=== PATIENT | female | born 1955 | race Caucasian/White ===

== ENCOUNTER 2023-01-06 14:38 | Emergency (ER) | payer MEDICARE, SELFPAY ==
[2023-01-06 15:07] VITALS: BP 178/75; PULSE 80; RESP 16; TEMP 36.6; O2SAT 98; BMI 25.7
--- NOTE | 2023-01-06 15:09 | ED_ITS ---
HPI - General Adult General Chief complaint: Extremity Injury, Upper <SAMMY Arevalo - Last Filed: 01/08/23 11:11> Stated complaint: Sliced R ring finger <SAMMY Arevalo - Last Filed: 01/08/23 11:11> Time Seen by Provider: 01/06/23 15:19 <SAMMY Arevalo - Last Filed: 01/08/23 11:11> Source: patient and family <Dorcas Silverman NP - Last Filed: 01/06/23 17:04> Mode of arrival: ambulatory <Dorcas Silverman NP - Last Filed: 01/06/23 17:04> Limitations: no limitations <ESPINOZA Guillaume Last Filed: 01/06/23 17:04> History of Present Illness HPI narrative: 67-year-old female with history of hypertension hypothyroidism presents the ER with complaints of laceration to the right 4th digit. Patient reports she was doing dishes and a ceramic glass cut her finger. Patient unaware tetanus status. Patient denies any associated weakness, numbness or tingling of the extremity. <Dorcas Silverman NP - Last Filed: 01/06/23 17:04> Related Data Allergies/adverse reactions: Allergies Allergy/AdvReac Type Severity Reaction Status Date / Time bee pollen [bee stings] Allergy Swelling Verified 01/06/23 15:06 <SAMMY Arevalo - Last Filed: 01/08/23 11:11> Review of Systems Review of Systems: Yes all other systems are reviewed and are negative <Dorcas Silverman NP - Last Filed: 01/06/23 17:04> Constitutional: Constitutional: Reports no additional constitutional complaints, Denies body ache(s), Denies chills, Denies fever(s), Denies headache(s) and Denies weakness <Dorcas Silverman NP - Last Filed: 01/06/23 17:04> Eyes: Eyes: Reports no additional eye complaints and Denies change in vision <Dorcas Silverman NP - Last Filed: 01/06/23 17:04> ENT: Reports system reviewed and no additional complaints, except as documented, Denies dizziness, Denies headache(s), Denies nasal congestion, Denies nasal discharge and Denies neck pain <Dorcas Silverman PHYSICIAN PRACTICE CONSULTANT - Last Filed: 01/06/23 17:04> Cardiovascular: Cardiovascular: Reports no additional cardiovascular complaints, Denies chest pain, Denies leg edema and Denies dyspnea <Dorcas Silverman PHYSICIAN PRACTICE CONSULTANT - Last Filed: 01/06/23 17:04> Respiratory: Respiratory: Reports no additional respiratory complaints, Denies cough and Denies dyspnea <Dorcas Silvermna PHYSICIAN PRACTICE CONSULTANT - Last Filed: 01/06/23 17:04> Gastrointestinal: Gastrointestinal: Reports no additional gastrointestinal complaints, Denies abdominal pain, Denies diarrhea, Denies nausea and Denies vomiting <Dorcas Silverman PHYSICIAN PRACTICE CONSULTANT - Last Filed: 01/06/23 17:04> Genitourinary: Genitourinary: Reports no additional female genitourinary complaints and Denies urinary incontinence <Dorcas Silverman PHYSICIAN PRACTICE CONSULTANT - Last Filed: 01/06/23 17:04> Musculoskeletal: Musculoskeletal: Reports no additional musculoskeletal complaints, Denies back pain, Denies arthralgias, Denies joint swelling, Denies neck pain, Denies numbness and Denies tingling <Dorcas Silverman PHYSICIAN PRACTICE CONSULTANT - Last Filed: 01/06/23 17:04> Integumentary/Breasts: Skin/Breast: Reports system reviewed and no additional complaints, except as docu, Denies rash and Reports wounds <Dorcas Silverman PHYSICIAN PRACTICE CONSULTANT - Last Filed: 01/06/23 17:04> Neurologic: Reports system reviewed and no additional complaints, except as documented, Denies dizziness, Denies headache(s), Denies numbness, Denies tingling and Denies weakness <Dorcas Silverman PHYSICIAN PRACTICE CONSULTANT - Last Filed: 01/06/23 17:04> [facility] Past Medical History Attestation statement: The following information was validated with the patient. <Dorcas Silverman NP - Last Filed: 01/06/23 17:04> Source: old records reviewed and nursing notes reviewed <Dorcas Silverman NP - Last Filed: 01/06/23 17:04> Social History Social History: Social History Advance Directives: No Advance Directives Information Provided: No <Zurdo Sal, PA - Last Filed: 01/08/23 11:11> Physical Exam ED Vital Signs: Vital Signs - 24 hr 01/06/23 15:07 Temperature 97.9 F Pulse Rate 80 Respiratory Rate 16 Blood Pressure 178/75 H Pulse Oximetry 98 Oxygen Delivery Method Room Air BMI result Body Mass Index 25.7 <SAMMY Arevalo - Last Filed: 01/08/23 11:11> Vital Signs - 24 hr 01/06/23 15:07 Temperature 97.9 F Pulse Rate 80 Respiratory Rate 16 Blood Pressure 178/75 H Pulse Oximetry 98 Oxygen Delivery Method Room Air BMI result Body Mass Index 25.7 <Dorcas Silverman NP - Last Filed: 01/06/23 17:04> Const General: cooperative, healthy appearing and comfortable <Dorcas Silverman NP - Last Filed: 01/06/23 17:04> Orientation/consciousness: patient oriented x3 <Dorcas Silverman NP - Last Filed: 01/06/23 17:04> HENMT Head: Yes normal to inspection <Dorcas Silverman NP - Last Filed: 01/06/23 17:04> Ears: hearing grossly normal bilaterally <Dorcas Silverman NP - Last Filed: 01/06/23 17:04> Eyes General: appearance normal, both eyes and all related structures <Dorcas Silverman NP - Last Filed: 01/06/23 17:04> Neck Neck: Yes normal visual inspection <Dorcas Silverman NP - Last Filed: 01/06/23 17:04> Chest Chest palpation & inspection: normal inspection of the chest <Dorcas Silverman NP - Last Filed: 01/06/23 17:04> Resp Effort & Inspection: normal respiratory effort <Dorcas Silverman NP - Last Filed: 01/06/23 17:04> Cardio Peripheral pulses: Peripheral pulses 2+ throughout <Dorcas Silverman NP - Last Filed: 01/06/23 17:04> Skin General skin exam: no rashes or lesions noted <Dorcas Silverman NP - Last Filed: 01/06/23 17:04> Neuro General: patient oriented x3 and moves all extremities <Dorcas Silverman NP - Last Filed: 01/06/23 17:04> Extrem Other: Over the volar aspect of the right hand of the 4th digit there is a 4 cm laceration. Patient is able to flex and extend the digit with no difficulty. Sensation is intact distally. <Dorcas Silverman NP - Last Filed: 01/06/23 17:04> Course Course Course Narrative: RME: 67 yold female presents to the ED for right ring finger laceration cuased by mandy suresh in dish. Patient has complete range of motion of finger. Capillar refills intact. not uptodate with tenuas. Will go to [facility] [place] <SAMMY Arevalo - Last Filed: 01/08/23 11:11> Medications Administered Discontinued Medications Generic Name Dose Route Start Last Admin Trade Name Freq PRN Reason Stop Dose Admin Diphtheria/Tetanus/Acell Pertussis 0.5 ml 01/06/23 16:04 01/06/23 16:43 Diphth,Pertus(Acell),Tet Adult 0.5 Ml Syringe IM 01/06/23 16:05 0.5 ml .ONCE ONE Administration Lidocaine HCl 2 ml 01/06/23 15:45 01/06/23 16:43 Lidocaine Hcl 1 % Mpf 2 Ml Vial INFILTRATI 01/06/23 15:46 2 ml ONCE ONE Administration Lidocaine HCl 2 ml 01/06/23 15:45 01/06/23 16:43 Lidocaine Hcl 1 % Mpf 2 Ml Vial INFILTRATI 01/06/23 15:46 2 ml ONCE ONE Administration <SMAMY Arevalo - Last Filed: 01/08/23 11:11> Medications Administered Discontinued Medications Generic Name Dose Route Start Last Admin Trade Name Freq PRN Reason Stop Dose Admin Diphtheria/Tetanus/Acell Pertussis 0.5 ml 01/06/23 16:04 01/06/23 16:43 Diphth,Pertus(Acell),Tet Adult 0.5 Ml Syringe IM 01/06/23 16:05 0.5 ml .ONCE ONE Administration Lidocaine HCl 2 ml 01/06/23 15:45 01/06/23 16:43 Lidocaine Hcl 1 % Mpf 2 Ml Vial INFILTRATI 01/06/23 15:46 2 ml ONCE ONE Administration Lidocaine HCl 2 ml 01/06/23 15:45 01/06/23 16:43 Lidocaine Hcl 1 % Mpf 2 Ml Vial INFILTRATI 01/06/23 15:46 2 ml ONCE ONE Administration <Dorcas Silverman NP - Last Filed: 01/06/23 17:04> Procedures Laceration Laceration 1: Site: upper extremity (right 4th digit ) <Dorcas Silverman NP - Last Filed: 01/06/23 17:04> Side (If applicable): right <Dorcas Silverman PHYSICIAN PRACTICE CONSULTANT - Last Filed: 01/06/23 17:04> Size (cm): 4 <Dorcas Silverman NP - Last Filed: 01/06/23 17:04> Description: irregular <Dorcas Sivlerman NP - Last Filed: 01/06/23 17:04> Depth: simple, single layer <Dorcas Silverman NP - Last Filed: 01/06/23 17:04> Local Anesthetic: lidocaine 1% <Dorcas Silverman PHYSICIAN PRACTICE CONSULTANT - Last Filed: 01/06/23 17:04> Amount of anesthesia used (mL): 3 <Dorcas Silverman NP - Last Filed: 01/06/23 17:04> Pre-repair: wound explored and irrigated extensively (1L NS with betadine ) <Dorcas Silverman NP - Last Filed: 01/06/23 17:04> Skin layer closed with: vicryl <Dorcas Silverman NP - Last Filed: 01/06/23 17:04> Size (cm): 5-0 <Dorcas iSlverman NP - Last Filed: 01/06/23 17:04> Number of sutures: 6 <Dorcas Silverman NP - Last Filed: 01/06/23 17:04> Technique: simple, interrupted <Dorcas Silverman NP - Last Filed: 01/06/23 17:04> Nerve Block Nerve Block 1: Local Anesthetic: lidocaine 1% <Dorcas Silverman NP - Last Filed: 01/06/23 17:04> Amount of anesthesia used (mL): 3 <Dorcas Silverman NP - Last Filed: 01/06/23 17:04> Side: right <Dorcas Silverman NP - Last Filed: 01/06/23 17:04> Nerve Blocks: digital <Dorcas Silverman NP - Last Filed: 01/06/23 17:04> Procedure Successful: Yes <Dorcas Silverman NP - Last Filed: 01/06/23 17:04> Patient Tolerated Procedure: well <Dorcas Silverman NP - Last Filed: 01/06/23 17:04> Complications: none <Dorcas Silverman NP - Last Filed: 01/06/23 17:04> Medical Decision Making Medical Decision Making MDM Narrative: 67-year-old female [id number] here with laceration to the right 4th digit which occurred just prior to arrival See procedure note for wound repair Patient received digital block for pain control Tetanus will be updated <Dorcas Silverman NP - Last Filed: 01/06/23 17:04> Differential Diagnosis Differential Diagnoses: The differential diagnosis associated with the presentation includes <Dorcas Silverman NP - Last Filed: 01/06/23 17:04> Laceration Low concern for tendon injury or vascular injury or fracture <Dorcas Silverman NP - Last Filed: 01/06/23 17:04> Discharge Plan Discharge Clinical Impression: Finger laceration <SAMMY Arevalo - Last Filed: 01/08/23 11:11> Patient Disposition: Home, Self-Care <SAMMY Arevalo - Last Filed: 01/08/23 11:11> Instructions: Finger Laceration (ED) <SAMMY Arevalo - Last Filed: 01/08/23 11:11> Additional Instructions: Sutures out in 7-10 days <SAMMY Arevalo - Last Filed: 01/08/23 11:11> Referrals: Physician,Unknown J [Physician] - 1 week <SAMMY Arevalo - Last Filed: 01/08/23 11:11> Interventions: ED Discharge Assessment Last Done: 01/06/23 16:48 <SAMMY Arevalo - Last Filed: 01/08/23 11:11> Discharge Date/Time: 01/06/23 16:49 <SAMMY Arevalo - Last Filed: 01/08/23 11:11>
[2023-01-06] MEDS: Diphth,Pertus(ACell),Tet Adult 0.5 ML SYRINGE IM (16:43)
[2023-01-06] MEDS: Lidocaine HCl 1 % MPF 2 ML VIAL INFILTRATI ×2 (16:43)
== END 2023-01-06 16:49 | disposition home or self-care (01) ==
PROVIDERS: Emergency Provider Emergency Medicine; PCP Nurse Practitioner Family
DX: S61.214A Laceration without foreign body of right ring finger without damage to nail, initial encounter (principal); S60.414A Abrasion of right ring finger, initial encounter; W25.XXXA Contact with sharp glass, initial encounter; Y93.9 Activity, unspecified; Y92.009 Unspecified place in unspecified non-institutional (private) residence as the place of occurrence of the external cause; Y99.9 Unspecified external cause status; Z23 Encounter for immunization
CPT/HCPCS: 12042; 90471; 90715; 99282; 99284

== ENCOUNTER 2023-08-19 16:13 | Emergency (ER) | payer MEDICARE, SELFPAY ==
--- NOTE | ~2023-08-19 | XR_ITS ---
Examination: Right ankle 2 views and right foot 3 views. Clinical indications: Injury. Pain. TECHNIQUE: Right ankle 2 views and right foot 3 views. FINDINGS: RIGHT ANKLE: There is mild right lateral malleolar soft tissue swelling. Ankle mortise and subtalar joints are normal. A small the tip of medial malleolus. RIGHT FOOT: The ankle mortise and subtalar joints are normal. The metatarsophalangeal joints are normal as well. There is no bony erosive changes, loose body are osteophytes along the distal fifth metatarsal and MTP joint XR/XR foot RT min 3V IMPRESSION: Mild right lateral malleolar soft tissue swelling but no fracture seen. Unremarkable right ankle exam..
--- NOTE | ~2023-08-19 | XR_ITS ---
Examination: Right ankle 2 views and right foot 3 views. Clinical indications: Injury. Pain. TECHNIQUE: Right ankle 2 views and right foot 3 views. FINDINGS: RIGHT ANKLE: There is mild right lateral malleolar soft tissue swelling. Ankle mortise and subtalar joints are normal. A small the tip of medial malleolus. RIGHT FOOT: The ankle mortise and subtalar joints are normal. The metatarsophalangeal joints are normal as well. There is no bony erosive changes, loose body are osteophytes along the distal fifth metatarsal and MTP joint XR/XR ankle RT min 3V IMPRESSION: Mild right lateral malleolar soft tissue swelling but no fracture seen. Unremarkable right ankle exam..
[2023-08-19 16:26] VITALS: BP 157/45; PULSE 62; RESP 18; TEMP 36.4; O2SAT 97; BMI 26.6
--- NOTE | 2023-08-19 16:55 | ED.GENADULT ---
HPI - General Adult General Chief complaint: Extremity Injury, Lower Stated complaint: numbness/tingling in foot, heard 'crack' Time Seen by Provider: 08/19/23 18:54 Source: patient, RN notes reviewed and old records reviewed Mode of arrival: ambulatory Limitations: no limitations History of Present Illness HPI narrative: 67-year-old female presents for evaluation of right foot and ankle pain. Patient reports that she was seated on the chair for quite some time She stood up to let the dog out She states that when she stood up her right foot was ?asleep. ? Because she did not have full sensation her foot she states that she rolled her ankle She did not fall to the ground but she heard a pop in the right ankle She states that she then lowered herself to the ground due to the pain in her foot/ankle Denies any other injuries, she did not fall or hit her head Related Data Allergies Allergy/AdvReac Type Severity Reaction Status Date / Time bee pollen [bee stings] Allergy Swelling Verified 08/19/23 16:29 lactose Allergy Unknown Verified 08/19/23 16:30 Review of Systems Constitutional: Constitutional: Denies chills, Denies fever(s) and Denies headache(s) ENT: Denies headache(s) Musculoskeletal: Musculoskeletal: Reports arthralgias, Reports joint swelling and Reports limited range of motion Neurologic: Denies headache(s) PMFSH Social History Social History Advance Directives: No Advance Directives Information Provided: Yes Physical Exam ED Vital Signs: Vital Signs - 24 hr 08/19/23 16:26 Temperature 97.5 F Pulse Rate 62 Respiratory Rate 18 Blood Pressure 157/45 H Pulse Oximetry 97 Oxygen Delivery Method Room Air BMI result Body Mass Index 26.6 Const General: healthy appearing, comfortable, no acute distress, alert and awake Nutritional Appearance: well nourished Orientation/consciousness: patient oriented x3 HENMT Head: Yes normocephalic and Yes atraumatic Resp Effort & Inspection: normal respiratory effort, able to speak in complete sentences and not labored Cardio Rate: regular rate Rhythm: regular rhythm Skin Other: Patient has kele-yc-areqfsxi edema of the right lateral ankle over the lateral malleolus. This area is nontender to palpation. The patient is tender over the right lateral midfoot. There is no significant edema over this area. No wounds or lacerations General skin exam: elasticity normal Neuro General: patient oriented x3 Cranial nerves: Yes Bilaterally intact EOM present Cognition (Neuro): normal cognition Course Course Course Narrative: Patient was seated, and when she went to stand up her right leg was numb and sleep and she fell over injuring her right foot and ankle Sensation and motor function returned very quickly and now she feels no numbness or weakness or tingling, but does have pain in the right foot and ankle She did not pass out she had no headache she has no head injury or neck injury, never had any difficulty forming words, remembers everything X-rays are ordered This is rapid medical exam in triage pending full evaluation, full history and physical and dispo from ER provider Medical Decision Making Medical Decision Making MDM Narrative: 67-year-old female presents for evaluation of right foot/ankle pain. X-rays ordered which are negative for fracture. Patient states that she has a walking boot at home that she is comfortable using Differential Diagnosis Differential Diagnoses: The differential diagnosis associated with the presentation includes Ankle sprain Ankle fracture Contusion Dislocation Independent Interpretation I performed an independent interpretation of an: Plain X-Ray (No obvious fracture of the right foot/ankle) Radiology Impression Discussion of test interpretation with radiology: I have reviewed the radiologist's reading. (Mild right lateral malleolar and soft tissue swelling but no fracture seen) Discharge Plan Discharge Clinical Impression: Ankle sprain and strain Patient Disposition: Home, Self-Care Instructions: Ankle Strain (ED) Additional Instructions: Your x-rays were negative for fracture Use ibuprofen/Tylenol for pain Ice the area every few hours for next couple of days to help with swelling Follow-up with your primary doctor
--- OUTSIDE RECORDS SUMMARY | 2023-08-19 18:48 | XMS_ITS | Continuity of Care Document ---
Author Name Unknown Organization [facility] lt Address [address] [place] [id number]- Care Team Providers Care Household Worker Name Role Phone Francis DORAN, Kamila Yang Primary Care Physician Encounter [facility] [place] Date(s): 02/08/23 - 03/10/23 [facility] [address] [place] [address]- Attending Physician: Admtr, Ar8 Admitting Physician: Admtr, Ar8 Referring Physician: Admtr, Ar8 Allergies, Adverse Reactions, Alerts Substance Reaction Severity Status Bee Stings eye itching, swellin g local swelling Active egg-containing compound mucus buildup Act sandeep Other Food Allergy dairy products - mucus buildup Active Immunizations Given and Recorded Vaccine Date Status Refusal Reason tetanus/diphtheria/pertussis, acel(Tdap) 01/06/23 Recorded [id number] bivalent booster vax 07/18/22 Recorded influenza virus vaccine, inactivated 06/26/22 Give n influenza virus vaccine, inactivated 07/21/21 Sammy rded influenza virus vaccine, inactivated 06/06/20 Sammy rded influenza virus vaccine, inactivated 06/29/18 Sammy rded influenza virus vaccine, inactivated 09/26/17 Sammy rded influenza virus vaccine, inactivated 1 07/10/17 Re corded influenza virus vaccine, inactivated 06/06/16 Sammy rded influenza virus vaccine, inactivated 2 07/10/14 Gi lois pneumococcal 20-valent conjugate vaccine 01/22/22 Recorded SARS-CoV-2 (COVID-19) mRNA-1273 vaccine 01/15/22 R ecorded SARS-CoV-2 (COVID-19) mRNA-1273 vaccine 07/21/21 R ecorded SARS-CoV-2 (COVID-19) mRNA-1273 vaccine 12/05/20 R ecorded SARS-CoV-2 (COVID-19) mRNA-1273 vaccine 11/07/20 R ecorded zoster vaccine, inactivated 04/10/21 Recorded zoster vaccine, inactivated 01/23/21 Recorded Diphtheria/Tet/Pertussis, Acel (oldterm) 01/13/18 Given Zoster Vaccine Live 10/08/16 Recorded tetanus-diphtheria toxoids (Td) 11/05/06 Given [facility] [place] employer 2Result Comment: [08/30/2014] Received at work Medications amLODIPine 5 mg oral tablet 1 tablet, By Mouth, Daily, # 90 tablet, 2 Refills, Maintenance, 02/11/23 9:51:00 EDT, [facility], 162.2, cm, 02/08/23 7:19:00 EDT, Height Start Date: 02/11/23 Status: Ordered AutoCPAP 9-12 with heated humidification AutoCPAP 9-12 with heated humidification, See Instructions, # 1 each, Refills 0, Tot. Refills 0, Maintenance, use overnight and naps from [facility], 01/16/22 12:22:00 EDT, Compound Start Date: 01/16/22 Status: Ordered EpiPen 2-Dayday 0.3 mg injectable kit See Instructions, Intramuscular Once, # 1 kit, 1 Refills, Soft Stop Start Date: 03/15/13 Status: Ordered ipratropium nasal 21 mcg/inh spray See Instructions, INHALE 1 SPRAY INTO EACH NOSTRIL TWICE A DAY NEEDED FOR NASAL CONGESTION, # 90Unknown, 5 Refills, Maintenance, 11/08/22 11:15:00 EST, [facility], 90, INHALE 1 SPRAY INTO EACH NOSTRIL TWICE A DAY NEEDED FOR NASAL CONGESTIO... Start Date: 11/08/22 Status: Ordered lantanoprost eye drops lantanoprost eye drops, Refills 0, Maintenance, 08/17/21 9:09:00 EST, Supply Start Date: 08/17/21 Status: Ordered levothyroxine 150 mcg (0.15 mg) oral tablet 1 tablet, By Mouth, Daily, # 90 tablet, 1 Refills, 08/08/22 8:07:00 EST, [facility]/pharmacy #[id number], 162.2,cm, 08/08/22 7:43:00 EST, Height Start Date: 08/08/22 Status: Ordered Magnesium Citrate By Mouth, 0 Refills, Maintenance, 08/13/17 9:06:37 Start Date: 08/13/17 Status: Ordered metroNIDAZOLE 0.75% topical gel 1 application, Topically, 2 times a day, # 45 Gm, 5 Refills, Maintenance, 01/20/20 7:37:00 EDT, Gel, [facility]/pharmacy #[id number], 1 application Topically 2 times a day,x30 days, 162.56, cm, 01/20/20 6:47:00 EDT, Height Start Date: 01/20/20 Stop Date: 07/18/20 Status: Ordered Nature's Bounty Red Krill Oil = 1,000 mg, By Mouth, 2 times a day, 0 Refills, Maintenance, 08/13/17 9:06:44 Start Date: 08/13/17 Status: Ordered Rocklatan 0.02%-0.005% ophthalmic solution 1 drops, Daily before dinner, 0 Refills, Maintenance, 02/08/23 7:39:00 EDT, Partial fill upon patient request if the prescription is for a schedule II opioid drug. Start Date: 02/08/23 Status: Ordered Super B Complex Vitamin B Complex oral tablet 1 tablet, By Mouth, Daily, 0 Refills, Maintenance, 08/13/17 9:06:58 Start Date: 08/13/17 Status: Ordered Vitamin D3 2000 intl units oral capsule 1 capsule = 2,000 International_Units, By Mouth, Daily, 0 Refills, Maintenance Start Date: 09/16/12 Status: Ordered Problem List Condition Confirmation Course Effective Dates Status H ealth Status Informant Allergic rhinitis Confirmed Active Goiter Confirmed Active History of right thyroidectomy Confirmed Active Hypertension Confirmed Active Hypothyroid Confirmed Active IMA (obstructive sleep apnea) Confirmed Active Osteopenia Confirmed Active Acne rosacea Confirmed Active Social History Social History Type Response Smoking Status Never smoker entered on: 02/10/16 Sex EKG study * Event Display: EKG Authored Date: [id number] Radiology * Mariaelena Box: PERFORM Event Display: Radiology Results Scanned Authored Date: [id number] * Mariaelena Box: PERFORM Event Display: Radiology Results Scanned Authored Date: [id number] * Isauro Mariaelena: PERFORM Event Display: Radiology Results Scanned Authored Date: [id number] Patient Care team information Care Team Personnel Name: Francis DORAN, Kamila Yang Position: [facility] Associate Professional Member Role: PCP Address: Address: [address] [place] [id number]- Care Team Related Persons Name: RENATA CARY Address: home [address] [place] [address] Name: FREDY CARY Address: home [address] [place] [address]
--- OUTSIDE RECORDS SUMMARY | 2023-08-19 18:48 | XMS_ITS | Continuity of Care Document ---
Author Name Unknown Organization [facility] Tee lt Address [address] [place] [address]- Care Team Providers Care School Business Manager Name Role Phone Francis DORAN, Kamila Yang Primary Care Physician Encounter [facility] [place] Date(s): 02/22/20 - 02/29/20 [facility] Adult [address] [place] [address]- [facility] Encounter Diagnosis Hypertension(Discharge Diagnosis) - 02/22/20 Attending Physician: Kamila Blanco NP Allergies, Adverse Reactions, Alerts Substance Reaction Severity Status Bee Stings eye itching, swellin g local swelling Active egg-containing compound mucus buildup Act sandeep Other Food Allergy dairy products - mucus buildup Active Immunizations Given and Recorded Vaccine Date Status Refusal Reason Diphtheria/Tet/Pertussis, Acel (oldterm) 01/13/18 Given influenza virus vaccine, inactivated 1 07/10/17 Re corded influenza virus vaccine, inactivated 06/06/16 Sammy rded influenza virus vaccine, inactivated 2 07/10/14 Gi lois tetanus-diphtheria toxoids (Td) 11/05/06 Given 1Location History: [facility] 2Result Comment: [08/30/2014] Received at work Medications amLODIPine 5 mg oral tablet 5 mg, 1, tablet, By Mouth, Daily, # 90 tablet, Refills 1, Tot. Refills 1, Maintenance, 01/20/20 7:23:00 EDT, Route to Pharmacy Electronically, [facility]/pharmacy #[id number], 162.56, cm, 01/20/20 6:47:00 EDT, Height Start Date: 01/20/20 Status: Ordered EpiPen 2-Dayday 0.3 mg injectable kit See Instructions, Intramuscular Once, # 1 kit, 1 Refills, Soft Stop Start Date: 03/15/13 Status: Ordered levothyroxine 150 mcg (0.15 mg) oral tablet 1 tablet = 150 mcg, By Mouth, Daily, # 90 tablet, 1 Refills, Maintenance, 09/15/19 12:16:00 EST, Tablet, [facility]/pharmacy #[id number], 162.56, cm, 01/15/19 6:52:00 EDT, Height Start Date: 09/15/19 Status: Ordered Magnesium Citrate By Mouth, 0 Refills, Maintenance, 08/13/17 9:06:37 Start Date: 08/13/17 Status: Ordered metroNIDAZOLE 0.75% topical gel 1 application, Topically, 2 times a day, # 45 Gm, 5 Refills, Maintenance, 01/20/20 7:37:00 EDT, Gel, [facility]/pharmacy #[id number], 1 application Topically 2 times a day,x30 days, 162.56, cm, 01/20/20 6:47:00 EDT, Height Start Date: 01/20/20 Stop Date: 07/18/20 Status: Ordered Nature's Bounty Red Krill Oil = 1,000 mg, By Mouth, 2 times a day, 0 Refills, Maintenance, 08/13/17 9:06:44 Start Date: 08/13/17 Status: Ordered NuLYTELY with Flavor Packs oral powder for reconstitution 240 mL, By Mouth, Every 10 minutes, # 1 each, 0 Refills, Maintenance, 01/28/20 8:24:00 EDT, REC Powder, [facility]/pharmacy #[id number], test date 06/30/20, 240 mL By Mouth Every 10 minutes, 162.56, cm, 01/20/20 6:47:00 EDT, Height Start Date: 01/28/20 Status: Ordered Super B Complex Vitamin B Complex oral tablet 1 tablet, By Mouth, Daily, 0 Refills, Maintenance, 08/13/17 9:06:58 Start Date: 08/13/17 Status: Ordered Vitamin D3 2000 intl units oral capsule 1 capsule = 2,000 International_Units, By Mouth, Daily, 0 Refills, Maintenance Start Date: 09/16/12 Status: Ordered Problem List Condition Effective Dates Status Health Status Inform ant Allergic rhinitis(Confirmed) Active Goiter(Confirmed) Active History of right thyroidectomy(Confirmed) Active Hypertension(Confirmed) Active Hypothyroid(Confirmed) Active Acne rosacea(Confirmed) Active Diagnosis Diagnosis Type Effective Dates Health Status Cl inical Service Informant Hypertension Discharge Diagnosis 02/22/20 Vital Signs Most recent to oldest [Reference Range]: 1 Height 162.56 cm (02/22/20 7:38 AM) Weight 70.5 kg (02/22/20 7:38 AM) Oxygen Saturation [94-100 %] 97 % (02/22/20 7:38 AM) Pulse Rate [55-90 bpm] 72 bpm (02/22/20 7:38 AM) Body Mass Index [18.5-24.99] 26.68 *H* (02/22/20 7:38 AM) Blood Pressure [90-138/55-84 mm Hg] 133/ 82mm Hg (02/22/20 7:38 AM) Temperature [96.8-100.4 DegF] 97.1 DegF (02/22/20 7:38 AM) Blood pressure sites Arm, left (02/22/20 7:38 AM) Temperature Route Oral (02/22/20 7:38 AM) Weight Obtained Via Standing scale (02/22/20 7:38 AM) Social History Social History Type Response Smoking Status Never smoker entered on: 02/10/16 Sex
--- OUTSIDE RECORDS SUMMARY | 2023-08-19 18:48 | XMS_ITS | Continuity of Care Document ---
Author Name Unknown Organization [facility] Tee lt Address [address] [place] [address]- Care Team Providers Care Perl Software Engineer Name Role Phone Francis DORAN, Kamila Yang Primary Care Physician [place] [facility] [place]23 [place] 02/08/23 [facility] Adult [address] [place] [address]- Allergies, Adverse Reactions, Alerts Substance Reaction Severity Status Bee Stings eye itching, swellin g local swelling Active egg-containing compound mucus buildup Act sandeep Other Food Allergy dairy products - mucus buildup Active Immunizations Given and Recorded Vaccine Date Status Refusal Reason tetanus/diphtheria/pertussis, acel(Tdap) 01/06/23 Recorded [id number] bivalent booster vax 07/18/22 Recorded influenza virus [...] tetanus-diphtheria toxoids (Td) 11/05/06 Given 1Location History[place] [facility] [place] 2Result Comment: [08/30/2014] Received at work Medications amLODIPine 5 mg oral tablet 1 tablet, By Mouth, Daily, # 90 tablet, 2 Refills, [id number], 162.2, cm, 02/06/22 8:46:00 EDT, Height, 72.6, kg, 06/30/20 12:02:00 EDT, Dry Weight Start Date: 03/27/22 Status: Ordered AutoCPAP 9-12 with heated humidification AutoCPAP 9-12 with heated humidification, See Instructions, # 1 each, Refills 0, Tot. Refills 0, Maintenance, use overnight and naps from [facility], 01/16/22 12:22:00 EDT, Compound Start Date: 01/16/22 Status: Ordered EpiPen 2-Dayday 0.3 mg injectable kit See Instructions, Intramuscular Once, # 1 kit, 1 Refills, Soft Stop Start Date: 03/15/13 Status: Ordered ipratropium nasal 21 mcg/inh spray See Instructions, INHALE 1 SPRAY INTO EACH NOSTRIL TWICE A DAY NEEDED FOR NASAL CONGESTION, # 90Unknown, 5 Refills, Maintenance, 11/08/22 11:15:00 EST, [facility], 90, INHALE 1 SPRAY INTO EACH NOSTRIL TWICE A DAY NEEDED FOR NASAL CONGESTIO... Start Date: 11/08/22 Status: Ordered lantanoprost eye drops lantanoprost eye drops, Refills 0, Maintenance, 08/17/21 9:09:00 EST, Supply Start Date: 08/17/21 Status: Ordered levothyroxine 150 mcg (0.15 mg) oral tablet 1 tablet, By Mouth, Daily, # 90 tablet, 1 Refills, 08/08/22 8:07:00 EST, [facility]/pharmacy #[id number], 162.2,cm, 08/08/22 7:43:00 EST, Height Start Date: 11/30/22 Status: Ordered Magnesium Citrate By Mouth, 0 Refills, Maintenance, 08/13/17 9:06:37 Start Date: 08/13/17 Status: Ordered metroNIDAZOLE 0.75% topical gel 1 application, Topically, 2 times a day, # 45 Gm, 5 Refills, Maintenance, 01/20/20 7:37:00 EDT, Gel, [id number], 1 application Topically 2 times a [...] Active Hypertension Confirmed Active Hypothyroid Confirmed Active MIA (obstructive sleep apnea) Confirmed Active Osteopenia Confirmed Active Acne rosacea Confirmed Active Social History Social History Type Response Smoking Status Never smoker entered on: 02/10/16 Sex Patient Care team information Care Team Personnel Name: Kamila Blanco NP Position: S PCO Associate Professional Member Role: PCP Address: Address: [address] [place] [address]- Care Team Related Persons Name: RENATA CARY Address: home [address] [place] [address] Name: FREDY CARY Address: home [address] [place] [address]
--- OUTSIDE RECORDS SUMMARY | 2023-08-19 18:48 | XMS_ITS | Continuity of Care Document ---
Author Name Unknown Organization [facility] Address [address] [place] [address]- Care Team Providers Care Public Service Administrator Name Role Phone Francis DORAN, Kamila Yang Primary Care Physician [phone] [place] [facility] [place] [facility] [address] [place] [address]- Attending Physician: Mati Mead MD Admitting Physician: Mati Mead MD Allergies, Adverse Reactions, Alerts Substance Reaction Severity Status Bee Stings eye itching, swellin g local swelling Active egg-containing compound mucus buildup Act sandeep Other Food Allergy dairy products - mucus buildup Active Immunizations Given and Recorded Vaccine Date Status Refusal Reason zoster vaccine, inactivated 04/10/21 Recorded zoster vaccine, inactivated 01/23/21 Recorded SARS-CoV-2 (COVID-19) mRNA-1273 vaccine 12/05/20 R ecorded SARS-CoV-2 (COVID-19) mRNA-1273 vaccine 11/07/20 R ecorded influenza virus vaccine, inactivated 06/06/20 Sammy rded influenza virus vaccine, inactivated 06/29/18 Sammy rded influenza virus vaccine, inactivated 09/26/17 Sammy rded influenza virus vaccine, inactivated 1 07/10/17 Re corded influenza virus vaccine, inactivated 06/06/16 Sammy rded influenza virus vaccine, inactivated 2 07/10/14 Gi lois Diphtheria/Tet/Pertussis, Acel (oldterm) 01/13/18 Given Zoster Vaccine Live 10/08/16 Recorded tetanus-diphtheria toxoids (Td) 11/05/06 Given 1Location History: [employer] [facility] 2Result Comment: [08/30/2014] Received at work Medications amLODIPine 5 mg oral tablet 1 tablet, By Mouth, Daily, # 90 tablet, 1 Refills, Maintenance, 01/03/21 7:12:00 EDT, [facility]/pharmacy #[id number], 162.2, cm, 06/30/20 12:02:00 EDT, Height, 72.6, kg, 06/30/20 12:02:00 EDT, Dry Weight Start Date: 01/03/21 Status: Ordered AutoCPAP 10-20 with heated humidification AutoCPAP 10-20 with heated humidification, See Instructions, # 1 each, Refills 0, Tot. Refills 0, Maintenance, [facility], 04/14/21 17:24:00 EDT, Compound Start Date: 04/14/21 Status: Ordered EpiPen 2-Dayday 0.3 mg injectable kit See Instructions, Intramuscular Once, # 1 kit, 1 Refills, Soft Stop Start Date: 03/15/13 Status: Ordered ipratropium nasal 21 mcg/inh spray See Instructions, PRN Nasal Congestion, 1 spray each nostril BID, # 1 each, 4 Refills, Maintenance,02/16/21 15:21:00 EDT, [facility]/pharmacy #[id number], Partial fill upon patient request if the prescription isfor a schedule II opioid drug., 1 spray each nostri... Start Date: 02/16/21 Status: Ordered levothyroxine 150 mcg (0.15 mg) oral tablet 1 tablet = 150 mcg, By Mouth, Daily, # 90 tablet, 1 Refills, Maintenance, 02/20/21 16:10:00 EDT, Tablet, [facility]/pharmacy #[id number], 162.2, cm, 02/16/21 15:34:00 EDT, Height, 72.6, kg, 06/30/20 12:02:00 EDT,Dry Weight Start Date: 02/20/21 Status: Ordered Magnesium Citrate By Mouth, 0 Refills, Maintenance, 08/13/17 9:06:37 Start Date: 08/13/17 Status: Ordered metroNIDAZOLE 0.75% topical gel 1 application, Topically, 2 times a day, # 45 Gm, 5 Refills, Maintenance, 01/20/20 7:37:00 EDT, Gel, [facility]/pharmacy #[id number], 1 application Topically 2 times a day,x30 days, 162.56, cm, 01/20/20 6:47:00 EDT, Height Start Date: 01/20/20 Stop Date: 07/18/20 Status: Ordered Nature's Bounty Red Krill Oil = 1,000 mg, By Mouth, 2 times a day, 0 Refills, Maintenance, 08/13/17 9:06:44 Start Date: 08/13/17 Status: Ordered Super B Complex Vitamin B [...] right thyroidectomy(Confirmed) Active Hypertension(Confirmed) Active Hypothyroid(Confirmed) Active MIA (obstructive sleep apnea)(Confirmed) Active Osteopenia(Confirmed) Active Acne rosacea(Confirmed) Active Social History Social History Type Response Smoking Status Never smoker entered on: 02/10/16 Sex
--- OUTSIDE RECORDS SUMMARY | 2023-08-19 18:48 | XMS_ITS | Continuity of Care Document ---
Author Name Unknown Organization [facility] Address [address] [place] [address]- Care Team Providers Care Manager Human Capital Name Role Phone Francis DORAN, Kamila Yang Primary Care Physician Encounter 06/28/22 - 07/05/22 [facility] [address], [address] [place] [address]- Attending Physician: Francis DORAN, Kamila Yang Admitting Physician: Francis DORAN, Kamila Yang Referring Physician: Francis DORAN, Kamila Yang Allergies, Adverse Reactions, Alerts Substance Reaction Severity Status Bee Stings eye itching, swellin g local swelling Active egg-containing compound mucus buildup Act sandeep Other Food Allergy dairy products - mucus buildup Active Immunizations Given and Recorded Vaccine Date Status Refusal Reason influenza virus vaccine, inactivated 06/26/22 Give n influenza virus vaccine, inactivated 07/21/21 Sammy rded influenza virus vaccine, inactivated 06/06/20 Sammy rded influenza virus vaccine, inactivated 06/29/18 Sammy rded influenza virus vaccine, inactivated 09/26/17 Sammy rded influenza virus vaccine, inactivated 1 07/10/17 Re corded influenza virus vaccine, inactivated 06/06/16 Sammy rded influenza virus vaccine, inactivated 2 07/10/14 Gi lois SARS-CoV-2 (COVID-19) mRNA-1273 vaccine 07/21/21 R ecorded SARS-CoV-2 (COVID-19) mRNA-1273 vaccine 12/05/20 R ecorded SARS-CoV-2 (COVID-19) mRNA-1273 vaccine 11/07/20 R ecorded zoster vaccine, inactivated 04/10/21 Recorded zoster vaccine, inactivated 01/23/21 Recorded Diphtheria/Tet/Pertussis, Acel (oldterm) 01/13/18 Given Zoster Vaccine Live 10/08/16 Recorded tetanus-diphtheria toxoids (Td) 11/05/06 Given 1[place] [facility] [place] 2Result Comment: [08/30/2014] Received at work Medications amLODIPine 5 mg oral tablet 1 tablet, By Mouth, Daily, # 90 tablet, 2 Refills, [facility], 162.2, cm, 02/06/22 8:46:00 EDT, Height, 72.6, kg, 06/30/20 12:02:00 EDT, Dry Weight Start Date: 03/27/22 Status: Ordered AutoCPAP 9-12 with heated humidification AutoCPAP 9-12 with heated humidification, See Instructions, # 1 each, Refills 0, Tot. Refills 0, Maintenance, [facility], 01/16/22 12:22:00 EDT, Compound Start Date: 01/16/22 Status: Ordered EpiPen 2-Dayday 0.3 mg injectable kit See Instructions, Intramuscular Once, # 1 kit, 1 Refills, Soft Stop Start Date: 03/15/13 Status: Ordered ipratropium nasal 21 mcg/inh spray See Instructions, INHALE 1 SPRAY INTO EACH NOSTRIL TWICE A DAY NEEDED FOR NASAL CONGESTION, # 90Unknown, 1 Refills, Maintenance, 05/07/22 12:32:00 EDT, [facility], 90, INHALE 1 SPRAY INTO EACH NOSTRIL TWICE A DAY NEEDED FOR NASAL CONGESTIO... Start Date: 05/07/22 Status: Ordered lantanoprost eye drops lantanoprost eye drops, Refills 0, Maintenance, 08/17/21 9:09:00 EST, Supply Start Date: 08/17/21 Status: Ordered levothyroxine 150 mcg (0.15 mg) oral tablet 1 tablet, By Mouth, Daily, # 90 tablet, 1 Refills, [facility], 162.2, cm, 02/06/22 8:46:00 EDT, Height, 72.6, kg, 06/30/20 12:02:00 EDT, Dry Weight Start Date: 03/27/22 Status: Ordered Magnesium Citrate By Mouth, 0 Refills, Maintenance, 08/13/17 9:06:37 Start Date: 08/13/17 Status: Ordered metroNIDAZOLE 0.75% topical gel 1 application, Topically, 2 times a day, # 45 Gm, 5 Refills, Maintenance, 01/20/20 7:37:00 EDT, Gel, [facility]/pharmacy #[id number], 1 application Topically 2 times [...] on: 02/10/16 Sex Patient Care team information Personnel Name: Kamila Blanco NP Address: Address: [address] [place] [id number]
--- OUTSIDE RECORDS SUMMARY | 2023-08-19 18:48 | XMS_ITS | Continuity of Care Document ---
Author Name Unknown Organization [facility] Tee [facility] Address [address] [place] [id number]- Care Team Providers Care Bleach Analyst Name Role Phone Francis DORAN, Kamila Yang Primary Care Physician [phone] [facility] [place] Date(s): 02/01/23 - 03/03/23 [facility] Adult [address] [place] [address]- Allergies, Adverse Reactions, Alerts Substance Reaction Severity Status Bee Stings eye itching, swellin g local swelling Active egg-containing compound mucus buildup Act sandeep Other Food Allergy dairy products - mucus buildup Active Immunizations Given and Recorded Vaccine Date Status Refusal Reason tetanus/diphtheria/pertussis, acel(Tdap) 01/06/23 Recorded [id number] bivalent booster vax 07/18/22 Recorded influenza virus [...] tetanus-diphtheria toxoids (Td) 11/05/06 Given [place] [facility] [place] 2Result Comment: [08/30/2014] Received at work Medications amLODIPine 5 mg oral tablet 1 tablet, By Mouth, Daily, # 90 tablet, 2 Refills, Maintenance, 02/11/23 9:51:00 EDT, [facility], 162.2, cm, 02/08/23 7:19:00 EDT, Height Start Date: 02/11/23 Status: Ordered AutoCPAP 9-12 with heated humidification AutoCPAP 9-12 with heated humidification, See Instructions, # 1 each, Refills 0, Tot. Refills 0, Maintenance, use overnight and naps from [facility], 01/16/22 12:22:00 EDT, Compound Start Date: 01/16/22 Status: Ordered EpiPen 2-Dayday 0.3 mg injectable kit See Instructions, Intramuscular Once, # 1 kit, 1 Refills, Soft Stop Start Date: 03/15/13 Status: Ordered ipratropium nasal 21 mcg/inh spray See Instructions, INHALE 1 SPRAY INTO EACH NOSTRIL TWICE A DAY NEEDED FOR NASAL CONGESTION, # 90Unknown, 5 Refills, Maintenance, 11/08/22 11:15:00 EST, [facility], 90, INHALE 1 SPRAY INTO EACH NOSTRIL TWICE A DAY NEEDED FOR NASAL CONGESTIO... Start Date: 11/08/22 Status: Ordered lantanoprost eye drops lantanoprost eye drops, Refills 0, Maintenance, 08/17/21 9:09:00 EST, Supply Start Date: 08/17/21 Status: Ordered levothyroxine 150 mcg (0.15 mg) oral tablet 1 tablet, By Mouth, Daily, # 90 tablet, 1 Refills, 08/08/22 8:07:00 EST, [facility]/pharmacy #[id number], 162.2,cm, 08/08/22 7:43:00 EST, Height Start [...] Personnel Name: Francis DORAN, Kamila Yang Position: S PCO Associate Professional Member Role: PCP Address: Address: [address] [place] [address]- Care Team Related Persons Name: RENATA CARY Address: home [address] [facility] [place] [address] Name: FREDY CARY Address: home [address] [place] [address]
--- OUTSIDE RECORDS SUMMARY | 2023-08-19 18:48 | XMS_ITS | Continuity of Care Document ---
Author Name Unknown Organization [facility] Address [address] [place] [address]- Care Team Providers Care Developer Programmer Name Role Phone Francis DORAN, Kamila Yang Primary Care Physician [place] [facility] [place] 05/31/22 - 06/07/22 [facility] Adult [address] [place] [address]- Encounter Diagnosis Nasopharyngitis(Discharge Diagnosis) - 05/31/22 Attending Physician: Not on Staff, Attending MD Allergies, Adverse Reactions, Alerts Substance Reaction Severity Status Bee Stings eye itching, swellin g local swelling Active egg-containing compound mucus buildup Act sandeep Other Food Allergy dairy products - mucus buildup Active Immunizations Given and Recorded Vaccine Date Status Refusal Reason influenza virus vaccine, inactivated 07/21/21 Sammy rded [...] tetanus-diphtheria toxoids (Td) 11/05/06 Given 1Location History: [facility] [place] employer 2Result Comment: [08/30/2014] Received at work Medications amLODIPine 5 mg oral tablet 1 tablet, By Mouth, Daily, # 90 tablet, 2 Refills, [facility], 162.2, cm, 02/06/22 8:46:00 EDT, Height, 72.6, [...] Refills, Maintenance, 05/07/22 12:32:00 EDT, [facility], 90, INHALE 1 SPRAY INTO EACH NOSTRIL TWICE A DAY NEEDED FOR NASAL CONGESTIO... Start Date: 05/07/22 Status: Ordered lantanoprost eye drops lantanoprost eye drops, Refills 0, Maintenance, 08/17/21 9:09:00 EST, Supply Start Date: 08/17/21 Status: Ordered levothyroxine 150 mcg (0.15 mg) oral tablet 1 tablet, By Mouth, Daily, # 90 tablet, 1 Refills, [facility], 162.2, cm, 02/06/22 8:46:00 EDT, Height, 72.6, [...] Osteopenia Confirmed Active Acne rosacea Confirmed Active Diagnosis Diagnosis Type Effective Dates Health Status Cl inical Service Informant Nasopharyngitis Discharge Diagnosis 05/31/22 Vital Signs Most recent to oldest [Reference Range]: 1 Height 162.2 cm (05/31/22 10:19 AM) Social History Social History Type Response Smoking Status Never smoker entered on: 02/10/16 Sex Patient Care team information Personnel Name: Francis DORAN, Kamila Yang Address: Address: [address] [place] [address] [place], [place] [address]
--- OUTSIDE RECORDS SUMMARY | 2023-08-19 18:48 | XMS_ITS | Continuity of Care Document ---
Author Name Unknown Organization [facility] Tee [facility] Address [address] [place] [address]- Care Team Providers Care Grocery Clerk Checking Name Role Phone Francis DORAN, Kamila Yang Primary Care Physician [place] [facility] [place] 03/03/23 [facility] Adult [address] [place] [address]- Allergies, Adverse Reactions, Alerts Substance Reaction Severity Status Bee Stings eye itching, swellin g local swelling Active egg-containing compound mucus buildup Act sandeep Other Food Allergy dairy products - mucus buildup Active Immunizations Given and Recorded Vaccine Date Status Refusal Reason tetanus/diphtheria/pertussis, acel(Tdap) 01/06/23 Recorded [id number] bivalent booster vax 07/18/22 Recorded influenza virus [...] tetanus-diphtheria toxoids (Td) 11/05/06 Given [place] [facility] [place] Comment: [08/30/2014] Received at work Medications amLODIPine 5 mg oral tablet 1 tablet, By Mouth, Daily, # 90 tablet, 2 Refills, Maintenance, 02/11/23 9:51:00 EDT, [facility], 162.2, cm, 02/08/23 7:19:00 EDT, Height Start Date: 02/11/23 Status: Ordered AutoCPAP 9-12 with heated humidification AutoCPAP 9-12 with heated humidification, See Instructions, # 1 each, Refills 0, Tot. Refills 0, Maintenance, use overnight and naps from [facility], 01/16/22 12:22:00 EDT, Compound Start Date: 01/16/22 Status: Ordered EpiPen 2-Dayday 0.3 mg injectable kit See Instructions, Intramuscular Once, # 1 kit, 1 Refills, Soft Stop Start Date: 03/15/13 Status: Ordered ipratropium nasal 21 mcg/inh spray See Instructions, INHALE 1 SPRAY INTO EACH NOSTRIL TWICE A DAY NEEDED FOR NASAL CONGESTION, # 90Unknown, 5 Refills, Maintenance, 11/08/22 11:15:00 EST, [facility], 90, INHALE 1 SPRAY INTO EACH NOSTRIL TWICE A DAY NEEDED FOR NASAL CONGESTIO... Start Date: 11/08/22 Status: Ordered lantanoprost eye drops lantanoprost eye drops, Refills 0, Maintenance, 08/17/21 9:09:00 EST, Supply Start Date: 08/17/21 Status: Ordered levothyroxine 150 mcg (0.15 mg) oral tablet 1 tablet, By Mouth, Daily, # 90 tablet, 1 Refills, 08/08/22 8:07:00 EST, [facility]/pharmacy #[id number], 162.2,cm, 08/08/22 7:43:00 EST, Height [...] Associate Professional Member Role: PCP Address: Address: [address] [place] [address]- Care Team Related Persons Name: RENATA CARY Address: home [address] [facility] [place] [address] Name: FREDY CARY Address: home [address] [place] [address]
--- OUTSIDE RECORDS SUMMARY | 2023-08-19 18:48 | XMS_ITS | Continuity of Care Document ---
Author Name Unknown Organization [facility] Tee lt Address [address] [place] [address]- Care Team Providers Care Cabinet And Trim Installer Name Role Phone Francis DORAN, Kamila Yang Primary Care Physician [phone] Encounter [facility] Date(s): 08/24/21 - 08/31/21 [facility] Adult [address] [place] [address]- Encounter Diagnosis Stye(Discharge Diagnosis) - 08/24/21 Attending Physician: Gianni DORAN, Penelope Golden Allergies, Adverse Reactions, Alerts Substance Reaction Severity [...] tetanus-diphtheria toxoids (Td) 11/05/06 Given 1Location History: [facility] [place] 2Result Comment: [08/30/2014] Received at work Medications amLODIPine 5 mg oral tablet 1 tablet, By Mouth, Daily, # 90 tablet, 2 Refills, Maintenance, 06/15/21 10:15:00 EDT, [facility]/pharmacy#[id number], 162.2, cm, 02/16/21 15:34:00 EDT, Height, 72.6, kg, 06/30/20 12:02:00 EDT, Dry Weight Start Date: 06/15/21 Status: Ordered AutoCPAP 10-20 with heated humidification [...] 1 each, 4 Refills, Maintenance,02/16/21 15:21:00 EDT, [facility]/pharmacy #[id number], Partial fill upon patient request if the prescription isfor a schedule II opioid drug., 1 spray each nostri... Start Date: 02/16/21 Status: Ordered lantanoprost eye drops lantanoprost eye drops, Refills 0, Maintenance, 08/17/21 9:09:00 EST, Supply Start Date: 08/17/21 Status: Ordered levothyroxine 150 mcg (0.15 mg) oral tablet 1 tablet = 150 mcg, By Mouth, Daily, # 90 tablet, 1 Refills, Maintenance, 02/20/21 16:10:00 EDT, Tablet, [facility]/pharmacy #[id number], 162.2, cm, 02/16/21 15:34:00 EDT, Height, [...] apnea)(Confirmed) Active Osteopenia(Confirmed) Active Acne rosacea(Confirmed) Active Diagnosis Diagnosis Type Effective Dates Health Status Clini smith Service Informant Stye Discharge Diagnosis 08/24/21 Vital Signs Most recent to oldest [Reference Range]: 1 2 Height 162.2 cm (08/24/21 1:26 PM) 162.2 cm (08/24/21 1:06 PM) Weight 71.4 kg (08/24/21 1:06 PM) Oxygen Saturation [94-100 %] 98 % (08/24/21 1:06 PM) Pulse Rate [55-90 bpm] 60 bpm (08/24/21 1:06 PM) Body Mass Index [18.5-24.99] 27.14 *H* (08/24/21 1:06 PM) Blood Pressure [90-138/55-84 mm Hg] 136/ 84mm Hg (08/24/21 1:26 PM) 140/66mm Hg *H* (08/24/21 1:06 PM) Temperature [96.8-100.4 DegF] 98.3 DegF (08/24/21 1:06 PM) Mode of Delivery (Oxygen) Room air (08/24/21 1:06 PM) Blood pressure sites Arm, right (08/24/21 1:06 PM) Temperature Route Oral (08/24/21 1:06 PM) Weight Obtained Via Pediatric scale (08/24/21 1:06 PM) Social History Social History Type Response Smoking Status Never smoker entered on: 02/10/16 Sex
--- OUTSIDE RECORDS SUMMARY | 2023-08-19 18:48 | XMS_ITS | Continuity of Care Document ---
Author Name Unknown Organization [facility] Tee lt Address [address] [place] [address]- Care Team Providers Care Business Systems Consultant Name Role Phone Francis DORAN, Kamila Yang Primary Care Physician [phone] Encounter [facility] Date(s): 01/14/23 - 01/21/23 [facility] Adult [address] [place] [address]- Encounter Diagnosis Finger laceration(Discharge Diagnosis) - 01/14/23 Attending Physician: Not on Staff, Attending MD Referring Physician: Francis DORAN, Kamila Yang Allergies, Adverse Reactions, Alerts Substance Reaction Severity Status Bee Stings eye itching, swellin g local swelling Active egg-containing compound mucus buildup Act sandeep Other Food Allergy dairy products - mucus buildup Active Immunizations Given and Recorded Vaccine Date Status Refusal Reason [id number] bivalent booster vax 07/18/22 Recorded influenza virus [...] tetanus-diphtheria toxoids (Td) 11/05/06 Given 1Location History: [facility] [place] 2Result Comment: [08/30/2014] Received at work Medications amLODIPine 5 mg oral tablet 1 tablet, By Mouth, Daily, # 90 tablet, 2 Refills, [id number], 162.2, cm, 02/06/22 8:46:00 EDT, Height, 72.6, kg, 06/30/20 12:02:00 EDT, Dry Weight Start Date: 03/27/22 Status: Ordered AutoCPAP 9-12 with heated humidification AutoCPAP 9-12 with heated humidification, See Instructions, # 1 each, Refills 0, Tot. Refills 0, Maintenance, use overnight and naps from [facility], 01/16/22 12:22:00 EDT, Compound Start Date: 01/16/22 Status: Ordered EpiPen 2-Dayday 0.3 mg injectable kit See Instructions, Intramuscular Once, # 1 kit, 1 Refills, Soft Stop Start Date: 03/15/13 Status: Ordered ipratropium nasal 21 mcg/inh spray See Instructions, INHALE 1 SPRAY INTO EACH NOSTRIL TWICE A DAY NEEDED FOR NASAL CONGESTION, # 90Unknown, 5 Refills, Maintenance, 11/08/22 11:15:00 EST, [id number], 90, INHALE 1 SPRAY INTO EACH NOSTRIL TWICE A DAY NEEDED FOR NASAL CONGESTIO... Start Date: 11/08/22 Status: Ordered lantanoprost eye drops lantanoprost eye drops, Refills 0, Maintenance, 08/17/21 9:09:00 EST, Supply Start Date: 08/17/21 Status: Ordered levothyroxine 150 mcg (0.15 mg) oral tablet 1 tablet, By Mouth, Daily, # 90 tablet, 1 Refills, 08/08/22 8:07:00 EST, [facility]/pharmacy #[id number], 162.2,cm, 08/08/22 7:43:00 EST, Height Start Date: 08/08/22 Status: Ordered Magnesium Citrate By Mouth, 0 Refills, Maintenance, 08/13/17 9:06:37 Start Date: 08/13/17 Status: Ordered metroNIDAZOLE 0.75% topical gel 1 application, Topically, 2 times a day, # 45 Gm, 5 Refills, Maintenance, 01/20/20 7:37:00 EDT, Gel, [facility]/pharmacy #[id number], 1 application Topically 2 [...] Diagnosis Diagnosis Type Effective Dates Health Status Clinical Service Informant Finger laceration Discharge Diagnosis 01/14/23 Vital Signs Most recent to oldest [Reference Range]: 1 Height 162.2 cm (01/14/23 12:45 PM) Weight 70.3 kg (01/14/23 12:45 PM) Oxygen Saturation [94-100 %] 98 % (01/14/23 12:45 PM) Pulse Rate [55-90 bpm] 71 bpm (01/14/23 12:45 PM) Body Mass Index [18.5-24.99 kg/m2] 26.72 kg/m2 *H* (01/14/23 12:45 PM) Blood Pressure [90-138/55-84 mm Hg] 131/ 78mm Hg (01/14/23 12:45 PM) Blood pressure sites Arm, left (01/14/23 12:45 PM) Weight Obtained Via Standing scale (01/14/23 12:45 PM) Social History Social History Type Response Smoking Status Never smoker entered on: 02/10/16 Sex Note * Marianne Cam: PERFORM, SIGN, VERIFY Event Display: Patient Education/Instruction Authored Date: [id number] [facility] *BMP So [facility]lt Clinical Summary Name JEANNIE CARY Age 67 Years 1955 PCP Francis DORAN, Kamila Yang PCP Visit Date 01/14/2023 12:24:00 Additional Instructions: Scheduled Appointments?? Future Appointments ?*BMP??So??Shiva??Adlt ?[address],??[place],??[address] ?Phone:??--?Fax:??-- ?Appt. Date:??02/08/2023?7:30 AM ?Scheduled Provider:??Kamila Blanco NP Follow-Up Instructions ?? Diagnosis Laceration without foreign body of unspecified finger without damage to nail, initial encounter Medications: Please continue your medications until treatment is completed or stopped by your provider. Discuss any questions related to medications with your provider. Medications to Continue with No Changes These medications were not printed or sent to your pharmacy Amlodipine (amLODIPine 5 mg oral tablet) 1 tab(s) Oral Daily. Refills: 2. Next Dose: Cholecalciferol (Vitamin D3 2000 intl units oral capsule) 1 capsule Oral Daily. Next Dose: Durable Medical Equipment (AutoCPAP 9-12 with heated humidification) use overnight and naps from [facility]. Refills: 0. Next Dose: Epinephrine (EpiPen 2-Dayday 0.3 mg injectable kit) Intramuscular Once. Refills: 1. Next Dose: Ipratropium Nasal (ipratropium nasal 21 mcg/inh spray) INHALE 1 SPRAY INTO EACH NOSTRIL TWICE A DAYAS NEEDED FOR NASAL CONGESTION. Refills: 5. Next Dose: Levothyroxine (levothyroxine 150 mcg (0.15 mg) oral tablet) 1 tab(s) Oral Daily. Refills: 1. Next Dose: Magnesium Citrate Oral. Next Dose: Metronidazole Topical (metroNIDAZOLE 0.75% topical gel) 1 valerio Topically twice a day for 30 Days. Refills: 5. Next Dose: Miscellaneous Rx (lantanoprost eye drops) Next Dose: Multivitamin (Super B Complex Vitamin B Complex oral tablet) 1 tab(s) Oral Daily. Next Dose: Hettinger-3 Polyunsaturated Fatty Acids (Zakazaka's Bounty Red Krill Oil) 1,000 Milligram Oral twice a day. Next Dose: Allergy Info:?? Other Food Allergy; egg-containing compound; Bee Stings Medications Given This Visit Future Orders ?No future orders Vital Signs Height 162.2 cm Weight 70.3 kg BMI 26.72 kg/m2 Blood Pressure 131 mm Hg/78 mm Hg Temperature Pulse Rate 71 bpm Respiratory Rate 02 Sat Mode of Delivery 98 %/ You can now view a summary of your hospital visit from the comfort of your home through a free online portal called [facility]. [facility] [facility] is a website that allows you to securely view your medical information including discharge summary, medications and follow-up visits. ??You can alsosend a secure electronic message to your doctor???s office to request appointments, renew medications or just ask a question. You can enroll at [email or web address] or register during your next office visit. Disclaimer:?? The information provided is of a general nature and is intended to be used in conjunction with the recommendations and advice of your health care practitioner. ??Every effort has been made to ensure that the information provided is accurate and complete at the time it is provided to you however, as your needs change, or, as new ??information becomes available, different or additional instructions may be required. If you have questions, please consult with your primary care provider or pharmacist, as appropriate. ??This information is not intended to serve as substitution for assessment and evaluation by a qualified health care provider. If you do not have a primary care provider, you may find a [facility] provider by calling [facility] at [phone]. For information about the plan of care including goals and instructions for your diagnosis, please see the patient education orders section of this document. Patient Education Materials?? The content of this educational material or handout may have been modified, supplemented, or adapted from its original content and format to support your individualized medical care. Patient Care team information Care Team Personnel Name: Francis DORAN, Kamila Yang Position: [facility] PCO Associate Professional Member Role: PCP Address: Address: [address] [place] [address]- Care Team Related Persons Name: RENATA CARY Address: home [address] [place] [address] Name: FREDY CARY Address: home [address] [place] [address]
--- OUTSIDE RECORDS SUMMARY | 2023-08-19 18:48 | XMS_ITS | Continuity of Care Document ---
Author Name Unknown Organization [facility] ter Address [address] [place] [address]- Care Team Providers Care Family Partner Name Role Phone Francis DORAN, Kamila Yang Primary Care Physician [phone] [place] [facility] [place]/30/20 - 06/30/[address] [address]- [facility] Discharge Disposition: A-D/C Home Attending Physician: Corey Rodriguez MD Admitting Physician: Corey Rodriguez MD Referring Physician: Corey Rodriguez MD Allergies, Adverse Reactions, Alerts Substance Reaction Severity Status Bee Stings eye itching, swellin g local swelling Active egg-containing compound mucus buildup Act sandeep Other Food Allergy dairy products - mucus buildup Active Immunizations Given and Recorded Vaccine Date Status Refusal Reason influenza virus vaccine, inactivated 06/06/20 Sammy rded influenza virus vaccine, inactivated 1 07/10/17 Re corded influenza virus vaccine, inactivated 06/06/16 Sammy rded influenza virus vaccine, inactivated 2 07/10/14 Gi lois Diphtheria/Tet/Pertussis, Acel (oldterm) 01/13/18 Given tetanus-diphtheria toxoids (Td) 11/05/06 Given 1Location History: [facility] employer 2Result Comment: [08/30/2014] Received at work Medications amLODIPine 5 mg oral tablet 5 mg, 1, tablet, By Mouth, Daily, # 90 tablet, Refills 1, Tot. Refills 1, Maintenance, 01/20/20 7:23:00 EDT, Route to Pharmacy Electronically, [facility]/pharmacy #[id number], 162.56, cm, 01/20/20 6:47:00 EDT, Height Start Date: 01/20/20 Status: Ordered doxycycline hyclate 100 mg oral tablet 2 tablet = 200 mg, By Mouth, Once, # 2 tablet, 0 Refills, Soft Stop, 06/27/20 14:48:00 EDT, [facility]/pharmacy #[id number], 162.56, cm, 06/27/20 14:25:00 EDT, Height Start Date: 06/27/20 Status: Ordered EpiPen 2-Dayday 0.3 mg injectable kit See Instructions, Intramuscular Once, # 1 kit, 1 Refills, Soft Stop Start Date: 03/15/13 Status: Ordered levothyroxine 150 mcg (0.15 mg) oral tablet 1 tablet = 150 mcg, By Mouth, Daily, # 90 tablet, 1 Refills, Maintenance, 03/08/20 10:55:00 EDT, Tablet, [facility]/pharmacy #[id number], 162.56, cm, 02/22/20 7:38:00 EDT, Height Start Date: 03/08/20 Status: Ordered Magnesium Citrate By Mouth, 0 [...] minutes, # 1 each, 0 Refills, Maintenance, 06/24/20 13:52:00 EDT, REC Powder, [facility]/pharmacy #[id number], test date 06/30/20, 240 mL By Mouth Every 10 minutes, 162.56, cm, :38:00 EDT, Height Start Date: 06/24/20 Status: Ordered Super B Complex Vitamin B [...] Hypertension(Confirmed) Active Hypothyroid(Confirmed) Active Acne rosacea(Confirmed) Active Procedures Procedure Date Related Diagnosis Body Site Status Colonoscopy 06/30/20 Completed Vital Signs Most recent to oldest [Reference Range]: 1 2 3 Height 162.2 cm (06/30/20 11:56 AM) Oxygen Saturation [94-100 %] 100 % (06/30/20 12:49 PM) 100 % (06/30/20 12:44 PM) 98 % (06/30/20 11:56 AM) Pulse Rate [55-90 bpm] 68 bpm (06/30/20 11:56 AM) Blood Pressure [90-138/55-84 mm Hg] 125/73mm Hg (06/30/20 12:49 PM) 122/74mm Hg (06/30/20 12:44 PM) 104/74mm Hg (06/30/20 11:56 AM) Respiratory Rate [16-30 br/min] 18 br/min (06/30/20 11:56 AM) Temperature [96.8-100.4 DegF] 98.1 DegF (06/30/20 11:56 AM) Mode of Delivery (Oxygen) Room air (06/30/20 12:44 PM) Room air (06/30/20 11:56 AM) Blood pressure sites Arm, left (06/30/20 12:49 PM) Arm, left (06/30/20 12:44 PM) Arm, left (06/30/20 11:56 AM) Temperature Route Temporal (06/30/20 11:56 AM) Dry Weight 72.6 kg (06/30/20 11:56 AM) Social History Social History Type Response Smoking Status Never smoker entered on: 02/10/16 Sex
--- OUTSIDE RECORDS SUMMARY | 2023-08-19 18:48 | XMS_ITS | Continuity of Care Document ---
Author Name Unknown Organization [facility] Tee Address [address] [place] [address]- Care Team Providers Care Supply Chain Generalist Name Role Phone Francis DORAN, Kamila Yang Primary Care Physician En[place] [facility] Date(s): 06/26/22 - 07/26/22 [facility] Adult [address] [place] [address]- Attending Physician: Anisha Santiago Admitting Physician: AdmAnisha douglas Referring Physician: AdmtrAnisha Allergies, Adverse Reactions, Alerts Substance Reaction Severity [...] # 90 tablet, 2 Refills, [facility], 162.2, cm, 02/06/22 8:46:00 EDT, Height, 72.6, [...] Refills, Maintenance, 05/07/22 12:32:00 EDT, [facility], 90, INHALE 1 SPRAY INTO EACH NOSTRIL TWICE A DAY NEEDED FOR NASAL CONGESTIO... Start Date: 05/07/22 Status: Ordered lantanoprost eye drops lantanoprost eye drops, Refills 0, Maintenance, 08/17/21 9:09:00 EST, Supply Start Date: 08/17/21 Status: Ordered levothyroxine 150 mcg (0.15 mg) oral tablet 1 tablet, By Mouth, Daily, # 90 tablet, 1 Refills, [facility], 162.2, cm, 02/06/22 8:46:00 EDT, Height, 72.6, [...] study * Event Display: EKG Authored Date: [id number] Note * Mariaelena Box: PERFORM Event Display: Radiology Results Scanned Authored Date: [id number] * Mariaelena Box: PERFORM Event Display: Radiology Results Scanned Authored Date: [id number] * Mariaelena Box: PERFORM Event Display: Radiology Results Scanned Authored Date: [id number] Patient Care team information Care Team Personnel Name: Francis DORAN, Kamila Yang Position: S PCO Associate Professional Member Role: PCP Address: Address: [address] [place] [address]- Care Team Related Persons Name: RENATA CARY Address: home [address] [place] [address] Name: FREDY CARY Address: home [address] [place] [address]
--- OUTSIDE RECORDS SUMMARY | 2023-08-19 18:48 | XMS_ITS | Continuity of Care Document ---
Author Name Unknown Organization [facility] Tee lt Address [address] [place] [address]- Care Team Providers Care Stuffing Machine Operator Name Role Phone Francis DORAN, Kamila Yang Primary Care Physician Encounter [facility] Date(s): 01/20/20 - 01/27/20 [facility] Adult [address] [place] [address] Encounter Diagnosis Hypertension(Discharge Diagnosis) - 01/20/20 Hypothyroid(Discharge Diagnosis) - 01/20/20 Annual physical exam(Discharge Diagnosis) - 01/20/20 Acne rosacea(Discharge Diagnosis) - 01/20/20 Attending Physician: Kamila Blanco NP Allergies, Adverse [...] 01/20/20 7:23:00 EDT, Route to Pharmacy Electronically, [facility]/pharmacy #[id number], 162.56, cm, 01/20/20 6:47:00 EDT, Height Start Date: 01/20/20 Status: Ordered EpiPen 2-Dayday 0.3 mg injectable kit See Instructions, Intramuscular Once, # 1 kit, 1 Refills, Soft Stop Start Date: 03/15/13 Status: Ordered levothyroxine 150 mcg (0.15 mg) oral tablet 1 tablet = 150 mcg, By Mouth, Daily, # 90 tablet, 1 Refills, Maintenance, 09/15/19 12:16:00 EST, Tablet, [facility]/pharmacy #[id number], 162.56, cm, 01/15/19 6:52:00 EDT, Height Start Date: 09/15/19 Status: Ordered Magnesium Citrate By Mouth, 0 Refills, Maintenance, 08/13/17 9:06:37 Start Date: 08/13/17 Status: Ordered metroNIDAZOLE 0.75% topical gel 1 application, Topically, 2 times a day, # 45 Gm, 5 Refills, Maintenance, 01/20/20 7:37:00 EDT, Gel, [facility]/pharmacy #[id number], 1 application Topically 2 times [...] Effective Dates Health Status Clinical Service Informant Hypertension Discharge Diagnosis 01/20/20 Hypothyroid Discharge Diagnosis 01/20/20 Annual physical exam Discharge Diagnosis 01/20/20 Acne rosacea Discharge Diagnosis 01/20/20 Vital Signs Most recent to oldest [Reference Range]: 1 Height 162.56 cm (01/20/20 6:47 AM) Weight 71.5 kg (01/20/20 6:47 AM) Oxygen Saturation [94-100 %] 96 % (01/20/20 6:47 AM) Pulse Rate [55-90 bpm] 67 bpm (01/20/20 6:47 AM) Body Mass Index [18.5-24.99] 27.06 *H* (01/20/20 6:47 AM) Blood Pressure [90-138/55-84 mm Hg] 153/ 90mm Hg *H* (01/20/20 6:47 AM) Temperature [96.8-100.4 DegF] 97.6 DegF (01/20/20 6:47 AM) Blood pressure sites Arm, left (01/20/20 6:47 AM) Temperature Route Oral (01/20/20 6:47 AM) Weight Obtained Via Standing scale (01/20/20 6:47 AM) Social History Social History Type Response Smoking Status Never smoker entered on: 02/10/16 Sex
--- OUTSIDE RECORDS SUMMARY | 2023-08-19 18:48 | XMS_ITS | Continuity of Care Document ---
Author Name Unknown Organization [facility] [place] Address [address] [place] [address]- Care Team Providers Care Customer Operations Representative Name Role Phone Francis DORAN, Dinah Yang Primary Care Physician Encounter 03/16/21 - 03/23/21 [facility] [address], [address] [place] [address]- Attending Physician: Francis DORAN, Dinah Yang Admitting Physician: Francis DORAN, Dinah Yang Referring Physician: Francis DORAN, Dinah Yang Allergies, Adverse Reactions, Alerts Substance Reaction Severity Status Bee Stings eye itching, swellin g local swelling Active egg-containing compound mucus buildup Act sandeep Other Food Allergy dairy products - mucus buildup Active Immunizations Given and Recorded Vaccine Date Status Refusal Reason zoster vaccine, inactivated 01/23/21 Recorded SARS-CoV-2 (COVID-19) [...] tablet, 1 Refills, Maintenance, 01/03/21 7:12:00 EDT, [facility]/pharmacy #[id number], 162.2, cm, 06/30/20 12:02:00 EDT, Height, 72.6, kg, 06/30/20 12:02:00 EDT, Dry Weight Start Date: 01/03/21 Status: Ordered EpiPen 2-Dayday 0.3 mg injectable kit See Instructions, Intramuscular Once, # 1 kit, 1 Refills, Soft Stop Start Date: 03/15/13 Status: Ordered ipratropium nasal 21 mcg/inh spray See Instructions, PRN Nasal Congestion, 1 spray each nostril BID, # 1 each, 4 Refills, Maintenance,02/16/21 15:21:00 EDT, [facility]/pharmacy #[id number], Partial fill upon patient request if the prescription isfor a schedule II opioid drug., 1 spray each nostri... Start Date: 02/16/21 Status: Ordered levothyroxine 150 mcg (0.15 mg) oral tablet 1 tablet = 150 mcg, By Mouth, Daily, # 90 tablet, 1 Refills, Maintenance, 02/20/21 16:10:00 EDT, Tablet, [facility]/pharmacy #[id number], 162.2, cm, 02/16/21 15:34:00 EDT, Height, 72.6, kg, 06/30/20 12:02:00 EDT,Dry Weight Start Date: 02/20/21 Status: Ordered Magnesium Citrate By Mouth, 0 Refills, Maintenance, 08/13/17 9:06:37 Start Date: 08/13/17 Status: Ordered metroNIDAZOLE 0.75% topical gel 1 application, Topically, 2 times a day, # 45 Gm, 5 Refills, Maintenance, 01/20/20 7:37:00 EDT, Gel, [facility]/pharmacy #[id number], 1 application Topically 2 [...] right thyroidectomy(Confirmed) Active Hypertension(Confirmed) Active Hypothyroid(Confirmed) Active Osteopenia(Confirmed) Active Acne rosacea(Confirmed) Active Results Radiology Reports * Exam Date Time Procedure Performing Provider Status 03/16/21 10:50 AM Dexa Bone Density (Axial) Makeda Moulton; Azeem (Verified) Notes: (Dexa Bone Density (Axial)) Reason For Exam: Post Menopausal RESULT: DEXA BONE DENSITY (AXIAL) Bone Density Report Name: JEANINE CARY Age: 65 Sex: Female Ethnicity: White Date of : 1955 Indication: POSTMENOPAUSAL. Referring Provider: DINAH MORA Study: Bone densitometry was performed. Exam Date: March 16, 2021 Accession number: [id number] Bone Density: Region BMD T-score Z-score Classification AP Spine (L1-L4) 0.904 -1.3 0.5 Osteopenia Femoral Neck (Right) 0.626 -2.0 -0.5 Osteopenia Total Hip (Right) 0.780 -1.3 -0.1 Osteopenia World Health Organization criteria for BMD impression classify patients as: Normal (T-score at or above -1.0), Osteopenia (T-score between -1.0 and -2.5), or Osteoporosis (T-score at or below -2.5). 10-year Fracture Risk(1): Major Osteoporotic Fracture 10% Hip Fracture 1.5% Reported Risk Factors: [place] (), Neck BMD=0.626, BMI=27.4 (1) FRAX(R) Version 3.00. Fracture probability calculated for an untreated patient. Fracture probability may be lower if the patient has received treatment. Clinical Information Provided by Patient: Has used the following medications: Vitamin D, Calcium, LEVOTHYROXINE Patient maximum height was 65.0 Menopause Age: 58 Onset of menses at age 12 Number of children 0 Impression: The patient has osteopenia as determined by WHO criteria. Based on the results of the patient's bone density assessment, the risk of future fracture increases approximately two fold for each 1.0 SD decrease in T-score. However, low BMD is not the only risk factor for a future fragility fracture. Other clinical risk factors for osteoporotic fracture should be considered in ascertaining this patient's future fracture risk including the patient's age, previous osteoporotic (fragility) fracture, estrogen deficiency/hypogonadism, risk of falling, use of medications implicated in bone loss (glucocorticoids), family history of osteoporotic fracture, diseases and conditions associated with bone loss, low body weight, smoking, high bone turnover, etc. Combining low BMD and other clinical risk factors result in a more precise assessment of future fracture risk. Secondary causes for osteoporosis, such as osteomalacia, other metabolic bone disorders, and diseases and conditions that may contribute to accelerated bone loss may have to be considered depending on the clinical situation. A repeat bone density assessment should be considered in two years. Reported by: Vane Cade M.D. on 03/17/2021 12:56:00 PM. Dictated By: Vane Cade MD Dictated Date/Time: 03/17/21 12:56 p Reviewed By: Vane Cade MD Signed By: Vane Cade MD Signed Date/Time: 03/17/21 12:56 pm Transcribed By: MAMIE Transcribed Date/Time: 03/17/21 12:56 pm Social History Social History Type Response Smoking Status Never smoker entered on: 02/10/16 Sex
--- OUTSIDE RECORDS SUMMARY | 2023-08-19 18:48 | XMS_ITS | Continuity of Care Document ---
Author Name Unknown Organization [facility] Address [address] [place] [address]- Care Team Providers Care Pan Reclaim Processor Name Role Phone Francis DORAN, Kamila Yang Primary Care Physician [phone] [facility]counter [facility] Date(s): 01/23/21 - 02/22/21 [facility] Adult [address] [place] [address]- Allergies, Adverse Reactions, Alerts Substance Reaction Severity [...] tablet, 1 Refills, Maintenance, 01/03/21 7:12:00 EDT, [id number], 162.2, cm, 06/30/20 12:02:00 EDT, Height, [...] 1 each, 4 Refills, Maintenance,02/16/21 15:21:00 EDT, [facility]/pharmacy #[id number], Partial fill upon patient request if the prescription isfor a schedule II opioid drug., 1 spray each nostri... Start Date: 02/16/21 Status: Ordered levothyroxine 150 mcg (0.15 mg) oral tablet 1 tablet = 150 mcg, By Mouth, Daily, # 90 tablet, 1 Refills, Maintenance, 02/20/21 16:10:00 EDT, Tablet, [facility]/pharmacy #[id number], 162.2, cm, 02/16/21 15:34:00 EDT, Height, 72.6, kg, 06/30/20 12:02:00 EDT,Dry Weight Start Date: 02/20/21 Status: Ordered Magnesium Citrate By Mouth, 0 Refills, Maintenance, 08/13/17 9:06:37 Start Date: 08/13/17 Status: Ordered metroNIDAZOLE 0.75% topical gel 1 application, Topically, 2 times a day, # 45 Gm, 5 Refills, Maintenance, 01/20/20 7:37:00 EDT, Gel, [facility]/pharmacy #[id number], 1 application Topically 2 times [...] Hypertension(Confirmed) Active Hypothyroid(Confirmed) Active Acne rosacea(Confirmed) Active Social History Social History Type Response Smoking Status Never smoker entered on: 02/10/16 Sex
--- OUTSIDE RECORDS SUMMARY | 2023-08-19 18:48 | XMS_ITS | Continuity of Care Document ---
Author Name Unknown Organization [facility] Address [address] [place] [address]- Care Team Providers Care Cnc Lathe Machinist Name Role Phone Francis DORAN, Kamila Yang Primary Care Physician Encounter [facility] Date(s): 03/20/21 - 04/19/21 [facility] Adult [address] [place] [address]- Allergies, Adverse Reactions, Alerts Substance Reaction Severity [...] tablet, 1 Refills, Maintenance, 01/03/21 7:12:00 EDT, [facility]/pharmacy #[id number], 162.2, cm, 06/30/20 12:02:00 EDT, Height, [...] 1 each, 4 Refills, Maintenance,02/16/21 15:21:00 EDT, [facility]/pharmacy #[id number], Partial fill upon patient request if the prescription isfor a schedule II opioid drug., 1 spray each nostri... Start Date: 02/16/21 Status: Ordered levothyroxine 150 mcg (0.15 mg) oral tablet 1 tablet = 150 mcg, By Mouth, Daily, # 90 tablet, 1 Refills, Maintenance, 02/20/21 16:10:00 EDT, Tablet, [facility]/pharmacy #[id number], 162.2, cm, 02/16/21 15:34:00 EDT, Height, 72.6, kg, 06/30/20 12:02:00 EDT,Dry Weight Start Date: 02/20/21 Status: Ordered Magnesium Citrate By Mouth, 0 Refills, Maintenance, 08/13/17 9:06:37 Start Date: 08/13/17 Status: Ordered metroNIDAZOLE 0.75% topical gel 1 application, Topically, 2 times a day, # 45 Gm, 5 Refills, Maintenance, 01/20/20 7:37:00 EDT, Gel, [facility]/pharmacy #[id number], 1 application Topically 2 times a [...]
--- OUTSIDE RECORDS SUMMARY | 2023-08-19 18:49 | XMS_ITS | Continuity of Care Document ---
Author Name Unknown Organization [facility] Address [address] [place] [address]- Care Team Providers Care Bootmaker Name Role Phone Francis DORAN, Kamila Yang Primary Care Physician [place] [facility] [place](s): 12/10/19 - 12/20/19 [facility] Adult [address] [place] [address]- [facility] Attending Physician: Anisha Santiago Admitting Physician: Anisha Santiago Referring Physician: AdmtrAnisha Allergies, Adverse Reactions, Alerts [...] Comment: [08/30/2014] Received at work Medications amLODIPine 2.5 mg oral tablet 2.5 mg, 1, tablet, By Mouth, Daily, # 90 tablet, Refills 3, Tot. Refills 3, Maintenance, 01/15/19 7:41:04 EDT, Route to Pharmacy Electronically, [id number], [facility]/pharmacy #[id number] Start Date: 01/15/19 Status: Ordered doxycycline hyclate 100 mg oral capsule 2 capsule = 200 mg, By Mouth, Once, # 2 capsule, 0 Refills, Soft Stop, 12/10/19 14:52:00 EDT, [facility]/pharmacy #[id number], 162.56, cm, 12/10/19 14:28:00 EDT, Height Start Date: 12/10/19 Status: Ordered EpiPen 2-Dayday 0.3 mg injectable kit See Instructions, Intramuscular Once, # 1 kit, 1 Refills, Soft Stop Start Date: 03/15/13 Status: Ordered levothyroxine 150 mcg (0.15 mg) oral tablet 1 tablet = 150 mcg, By Mouth, Daily, # 90 tablet, 1 Refills, Maintenance, 09/15/19 12:16:00 EST, Tablet, [facility]/pharmacy #[id number], 162.56, cm, 01/15/19 6:52:00 EDT, Height Start Date: 09/15/19 Status: Ordered Magnesium Citrate By Mouth, 0 Refills, Maintenance, 08/13/17 9:06:37 Start Date: 08/13/17 Status: Ordered Nature's Bounty Red Krill Oil [...]
--- OUTSIDE RECORDS SUMMARY | 2023-08-19 18:49 | XMS_ITS | Continuity of Care Document ---
Author Name Unknown Organization [facility] Address [address] [place] [address]- Care Team Providers Care Electrotyper Name Role Phone Francis DORAN, Kamila Yang Primary Care Physician [phone] [place] [facility] [place]s): 03/20/22 - 04/19/22 [facility] Adult [address] [place] [address]- Allergies, Adverse Reactions, Alerts Substance Reaction Severity [...] # 90 tablet, 2 Refills, [id number], 162.2, cm, 02/06/22 8:46:00 EDT, Height, 72.6, [...] 1 each, 4 Refills, Maintenance,02/16/21 15:21:00 EDT, [facility]/pharmacy #[id number], Partial fill upon patient request if the prescription isfor a schedule II opioid drug., 1 spray each nostri... Start Date: 02/16/21 Status: Ordered lantanoprost eye drops lantanoprost eye drops, Refills 0, Maintenance, 08/17/21 9:09:00 EST, Supply Start Date: 08/17/21 Status: Ordered levothyroxine 150 mcg (0.15 mg) oral tablet 1 tablet, By Mouth, Daily, # 90 tablet, 1 Refills, [facility], 162.2, cm, 02/06/22 8:46:00 EDT, Height, 72.6, kg, 06/30/20 12:02:00 EDT, Dry Weight Start Date: 03/27/22 Status: Ordered Magnesium Citrate By Mouth, 0 Refills, Maintenance, 08/13/17 9:06:37 Start Date: 08/13/17 Status: Ordered metroNIDAZOLE 0.75% topical gel 1 application, Topically, 2 times a day, # 45 Gm, 5 Refills, Maintenance, 01/20/20 7:37:00 EDT, Gel, [facility]/pharmacy #[id number], 1 application Topically 2 times a [...]
--- OUTSIDE RECORDS SUMMARY | 2023-08-19 18:49 | XMS_ITS | Continuity of Care Document ---
Author Name Unknown Organization [facility] Address [address] [place] [address]- Care Team Providers Care Supervisor Agricultural Education Name Role Phone Francis DORAN, Kamila Yang Primary Care Physician [phone] [place] [facility] [place] 12[place]30[place]20 [facility] Adult [address] [place] [address]- Encounter Diagnosis Viral syndrome(Discharge Diagnosis) - 12/23/20 Attending Physician: Andres Rollins MD Allergies, Adverse Reactions, Alerts Substance Reaction Severity Status Bee Stings eye itching, swellin g local swelling Active egg-containing compound mucus buildup Act sandeep Other Food Allergy dairy products - mucus buildup Active Immunizations Given and Recorded Vaccine Date Status Refusal Reason SARS-CoV-2 (COVID-19) mRNA-1273 vaccine 12/05/20 R ecorded [...] tablet, Refills 1, Tot. Refills 1, Maintenance, 07/07/20 14:14:00 EDT, Route to Pharmacy Electronically, [facility]/pharmacy #[id number], 162.2, cm, 06/30/20 12:02:00 EDT, Height, 72.6, kg, 06/30/20 12:02:00 EDT, Dry Weight Start Date: 07/07/20 Status: Ordered doxycycline hyclate 100 mg oral tablet 2 tablet = 200 mg, By Mouth, Once, # 2 tablet, 0 Refills, Soft Stop, 06/27/20 14:48:00 EDT, [facility]/pharmacy #[id number], 162.56, cm, 06/27/20 14:25:00 EDT, Height Start Date: 06/27/20 Status: Ordered EpiPen 2-Dayday 0.3 mg injectable kit See Instructions, Intramuscular Once, # 1 kit, 1 Refills, Soft Stop Start Date: 03/15/13 Status: Ordered levothyroxine 150 mcg (0.15 mg) oral tablet 1 tablet = 150 mcg, By Mouth, Daily, # 90 tablet, 1 Refills, Maintenance, 08/25/20 20:47:00 EST, Tablet, [facility]/pharmacy #[id number], 162.2, cm, 06/30/20 12:02:00 EDT, Height, 72.6, kg, 06/30/20 12:02:00 EDT,Dry Weight Start Date: 08/25/20 Status: Ordered Magnesium Citrate By Mouth, 0 Refills, Maintenance, 08/13/17 9:06:37 Start Date: 08/13/17 Status: Ordered metroNIDAZOLE 0.75% topical gel 1 application, Topically, 2 times a day, # 45 Gm, 5 Refills, Maintenance, 01/20/20 7:37:00 EDT, Gel, [facility]/pharmacy #[id number], 1 application Topically 2 [...] minutes, # 1 each, 0 Refills, Maintenance, 10/16/20 13:52:00 EDT, REC Powder, [facility]/pharmacy #[id number], test date 06/30/20, 240 mL By Mouth Every 10 minutes, 162.56, cm, 207:38:00 EDT, Height Start Date: 06/24/20 Status: Ordered [...] Dates Health Status Cl inical Service Informant Viral syndrome Discharge Diagnosis 12/23/20 Social History Social History Type Response Smoking Status Never smoker entered on: 02/10/16 Sex
--- OUTSIDE RECORDS SUMMARY | 2023-08-19 18:49 | XMS_ITS | Continuity of Care Document ---
Author Name Unknown Organization [facility] Address [address] [place] [address]- Care Team Providers Care Water Proofer Name Role Phone Francis DORAN, Kamila Yang Primary Care Physician [phone] Encounter [facility] Date(s): 07/31/21 - 08/30/21 [facility] Adult [address] [place] [address]- Allergies, Adverse Reactions, Alerts Substance Reaction Severity [...] tablet, 2 Refills, Maintenance, 06/15/21 10:15:00 EDT, [facility], 162.2, cm, 02/16/21 15:34:00 EDT, Height, 72.6, [...] 1 each, 4 Refills, Maintenance,02/16/21 15:21:00 EDT, [id number], Partial fill upon patient request if [...] 1 Refills, Maintenance, 02/20/21 16:10:00 EDT, Tablet, [id number], 162.2, cm, 02/16/21 15:34:00 EDT, Height, 72.6, kg, 06/30/20 12:02:00 EDT,Dry Weight Start Date: 02/20/21 Status: Ordered Magnesium Citrate By Mouth, 0 Refills, Maintenance, 08/13/17 9:06:37 Start Date: 08/13/17 Status: Ordered metroNIDAZOLE 0.75% topical gel 1 application, Topically, 2 times a day, # 45 Gm, 5 Refills, Maintenance, 01/20/20 7:37:00 EDT, Gel, [facility]/pharmacy #[id number], 1 application Topically 2 [...]
--- OUTSIDE RECORDS SUMMARY | 2023-08-19 18:49 | XMS_ITS | Continuity of Care Document ---
Author Name Unknown Organization [facility] Tee lt Address [address] [place] [address]- Care Team Providers Care Glue Bone Crusher Name Role Phone Francis DORAN, Kamila Yang Primary Care Physician [facility] Date(s): 01/13/21 - 02/12/21 [facility] Adult [address] [place] [address]- Allergies, Adverse Reactions, Alerts Substance Reaction Severity [...] 1 Refills, Maintenance, 08/25/20 20:47:00 EST, Tablet, [facility]/pharmacy #[id number], 162.2, cm, 06/30/20 12:02:00 EDT, Height, 72.6, kg, 06/30/20 12:02:00 EDT,Dry Weight Start Date: 08/25/20 Status: Ordered Magnesium Citrate By Mouth, 0 Refills, Maintenance, 08/13/17 9:06:37 Start Date: 08/13/17 Status: Ordered metroNIDAZOLE 0.75% topical gel 1 application, Topically, 2 times a day, # 45 Gm, 5 Refills, Maintenance, 01/20/20 7:37:00 EDT, Gel, [facility]/pharmacy #[id number], 1 application Topically 2 times [...]
--- OUTSIDE RECORDS SUMMARY | 2023-08-19 18:49 | XMS_ITS | Continuity of Care Document ---
Author Name Unknown Organization [facility] T[facility] lt Address [address] [place] [address]- Care Team Providers Care Cushion Maker Name Role Phone Francis DORAN, Kamila Yang Primary Care Physician [phone] Encounter [facility] Date(s): 02/07/21 - 03/09/21 [facility] Adult [address] [place] [address]- Allergies, Adverse Reactions, Alerts Substance Reaction Severity [...] 1 each, 4 Refills, Maintenance,02/16/21 15:21:00 EDT, [facility]/pharmacy #[id number], Partial fill upon patient request if the prescription isfor a schedule II opioid drug., 1 spray each nostri... Start Date: 02/16/21 Status: Ordered levothyroxine 150 mcg (0.15 mg) oral tablet 1 tablet = 150 mcg, By Mouth, Daily, # 90 tablet, 1 Refills, Maintenance, 02/20/21 16:10:00 EDT, Tablet, [facility]/pharmacy #[id number], 162.2, cm, 02/16/21 15:34:00 EDT, Height, 72.6, kg, 06/30/20 12:02:00 EDT,Dry Weight Start Date: 02/20/21 Status: Ordered Magnesium Citrate By Mouth, 0 Refills, Maintenance, 08/13/17 9:06:37 Start Date: 08/13/17 Status: Ordered metroNIDAZOLE 0.75% topical gel 1 application, Topically, 2 times a day, # 45 Gm, 5 Refills, Maintenance, 01/20/20 7:37:00 EDT, Gel, [facility]/pharmacy #[id number], 1 application Topically 2 [...]
--- OUTSIDE RECORDS SUMMARY | 2023-08-19 18:49 | XMS_ITS | Continuity of Care Document ---
Author Name Unknown Organization [facility] Address [address] [place] [address]- Care Team Providers Care Retail Salesman Name Role Phone Francis DORAN, Kamila Yang Primary Care Physician [facility]counter [facility] Date(s): 09/07/21 - 10/07/[address] [address] Attending Physician: Anisha Santiago Admitting Physician: AdmtrAnisha Referring Physician: Admtr, Ar8 Allergies, Adverse Reactions, [...] tetanus-diphtheria toxoids (Td) 11/05/06 [place] [facility] [place] 2Result Comment: [08/30/2014] Received at work Medications amLODIPine 5 mg oral tablet 1 tablet, By Mouth, Daily, # 90 tablet, 2 Refills, Maintenance, 06/15/21 10:15:00 EDT, [facility]/pharmacy#[id number], 162.2, cm, 02/16/21 15:34:00 EDT, Height, 72.6, kg, 06/30/20 12:02:00 EDT, Dry Weight Start Date: 06/15/21 Status: Ordered AutoCPAP 10-20 with heated humidification AutoCPAP 10-20 with heated humidification, See Instructions, # 1 each, Refills 0, Tot. Refills 0, Maintenance, use overnight and naps from [facility], 04/14/21 17:24:00 EDT, Compound Start Date: 04/14/21 Status: Ordered EpiPen 2-Dayday 0.3 mg injectable kit See Instructions, Intramuscular Once, # 1 kit, 1 Refills, Soft Stop Start Date: 03/15/13 Status: Ordered ipratropium nasal 21 mcg/inh spray See Instructions, PRN Nasal Congestion, 1 spray each nostril BID, # 1 each, 4 Refills, Maintenance,02/16/21 15:21:00 EDT, [facility]/pharmacy #[id number], Partial fill upon patient request if the prescription isfor a schedule II opioid drug., 1 spray each nostri... Start Date: 02/16/21 Status: Ordered lantanoprost eye drops lantanoprost eye drops, Refills 0, Maintenance, 08/17/21 9:09:00 EST, Supply Start Date: 08/17/21 Status: Ordered levothyroxine 150 mcg (0.15 mg) oral tablet 1 tablet, By Mouth, Daily, # 90 tablet, 1 Refills, [id number], 162.2, cm, 08/24/21 13:32:00 EST, Height, 72.6, kg, 06/30/20 12:02:00 EDT, Dry Weight Start Date: 09/12/21 Status: Ordered Magnesium Citrate By Mouth, 0 Refills, Maintenance, 08/13/17 9:06:37 Start Date: 08/13/17 Status: Ordered metroNIDAZOLE 0.75% topical gel 1 application, Topically, 2 times a day, # 45 Gm, 5 Refills, Maintenance, 01/20/20 7:37:00 EDT, Gel, [facility]/pharmacy #[id number], 1 application Topically 2 [...]
--- OUTSIDE RECORDS SUMMARY | 2023-08-19 18:49 | XMS_ITS | Continuity of Care Document ---
Author Name Unknown Organization [facility] Address [address] [place] [address]- Care Team Providers Care Molecular Modeler Name Role Phone Francis DORAN, Kamila Yang Primary Care Physician En[place] [facility] [place] Date(s[place] 08/14/21 - 08/21/21 [facility] Adult [address] [place] [address]- Encounter Diagnosis Hypertension(Discharge Diagnosis) - 08/14/21 Attending Physician: Kamila Blanco NP Referring Physician: Anthony Fowler MD Allergies, Adverse Reactions, Alerts Substance Reaction [...] tetanus-diphtheria toxoids (Td) 11/05/06 Given [place] [facility] [place] Comment: [08/30/2014] Received at work [...] Maintenance, use overnight and naps from [facility], 04/14/21 17:24:00 EDT, Compound Start Date: 04/14/21 [...] Cl inical Service Informant Hypertension Discharge Diagnosis 08/14/21 Vital Signs Most recent to oldest [Reference Range]: 1 2 Height 162.2 cm (08/14/21 8:57 AM) 162.2 cm (08/14/21 8:43 AM) Weight 72.3 kg (08/14/21 8:43 AM) Oxygen Saturation [94-100 %] 98 % (08/14/21 8:43 AM) Pulse Rate [55-90 bpm] 78 bpm (08/14/21 8:43 AM) Body Mass Index [18.5-24.99] 27.48 *H* (08/14/21 8:43 AM) Blood Pressure [90-138/55-84 mm Hg] 136/ 80mm Hg (12/6/21 8:57 AM) 136/87mm Hg (08/14/21 8:43 AM) Temperature [96.8-100.4 DegF] 97.4 DegF (08/14/21 8:43 AM) Blood pressure sites Arm, left (08/14/21 8:43 AM) Temperature Route Oral (08/14/21 8:43 AM) Weight Obtained Via Standing scale (08/14/21 8:43 AM) Social History Social History Type Response Smoking Status Never smoker entered on: 02/10/16 Sex
--- OUTSIDE RECORDS SUMMARY | 2023-08-19 18:49 | XMS_ITS | Continuity of Care Document ---
Author Name Unknown Organization [facility] Address [address] [place] [address]- Care Team Providers Care Bulb Weeder Name Role Phone Francis DROAN, Kamila Yang Primary Care Physician [place] [facility] [place](s[place] 08/24/21 - 09/23/21 [facility] Adult [address] [place] [address]- Attending Physician: Anisha Santiago Admitting Physician: AdmAnisha [...] tetanus-diphtheria toxoids (Td) 11/05/06 Given 1Location History: [facility] [place] employer 2Result Comment: [08/30/2014] Received at work Medications amLODIPine 5 mg oral tablet 1 tablet, By Mouth, Daily, # 90 tablet, 2 Refills, Maintenance, 06/15/21 10:15:00 EDT, [facility]/pharmacy#[id number], 162.2, cm, 02/16/21 15:34:00 EDT, Height, [...] 1 each, 4 Refills, Maintenance,02/16/21 15:21:00 EDT, [facility]/pharmacy #[id number], Partial fill upon patient request if the prescription isfor a schedule II opioid drug., 1 spray each nostri... Start Date: 02/16/21 Status: Ordered lantanoprost eye drops lantanoprost eye drops, Refills 0, Maintenance, 08/17/21 9:09:00 EST, Supply Start Date: 08/17/21 Status: Ordered levothyroxine 150 mcg (0.15 mg) oral tablet 1 tablet, By Mouth, Daily, # 90 tablet, 1 Refills, [facility] ST[facility] [id number], 162.2, cm, 08/24/21 13:32:00 EST, Height, 72.6, kg, 06/30/20 12:02:00 EDT, Dry Weight Start Date: 09/12/21 Status: Ordered Magnesium Citrate By Mouth, 0 Refills, Maintenance, 08/13/17 9:06:37 Start Date: 08/13/17 Status: Ordered metroNIDAZOLE 0.75% topical gel 1 application, Topically, 2 times a day, # 45 Gm, 5 Refills, Maintenance, 01/20/20 7:37:00 EDT, Gel, [facility]/pharmacy #[id number], 1 application Topically 2 [...]
--- OUTSIDE RECORDS SUMMARY | 2023-08-19 18:49 | XMS_ITS | Continuity of Care Document ---
Author Name Unknown Organization [facility] Address [address] [place] [address]- Care Team Providers Care Telecommunications Switch Technician Name Role Phone Francis DORAN, Kamila Yang Primary Care Physician En[place] [facility] [place](s[place] 05/11/21 - 06/10/21 [facility] [address] [address]- Attending Physician: Anisha Santiago Admitting Physician: Anisha [...] tablet, 1 Refills, Maintenance, 01/03/21 7:12:00 EDT, [facility]/pharmacy #[id number], 162.2, cm, 06/30/20 12:02:00 EDT, Height, [...] 1 each, 4 Refills, Maintenance,02/16/21 15:21:00 EDT, [facility]/pharmacy #[id number], Partial fill upon patient request if the prescription isfor a schedule II opioid drug., 1 spray each nostri... Start Date: 02/16/21 Status: Ordered levothyroxine 150 mcg (0.15 mg) oral tablet 1 tablet = 150 mcg, By Mouth, Daily, # 90 tablet, 1 Refills, Maintenance, 02/20/21 16:10:00 EDT, Tablet, [facility]/pharmacy #[id number], 162.2, cm, 02/16/21 15:34:00 EDT, Height, 72.6, kg, 06/30/20 12:02:00 EDT,Dry Weight Start Date: 02/20/21 Status: Ordered Magnesium Citrate By Mouth, 0 Refills, Maintenance, 08/13/17 9:06:37 Start Date: 08/13/17 Status: Ordered metroNIDAZOLE 0.75% topical gel 1 application, Topically, 2 times a day, # 45 Gm, 5 Refills, Maintenance, 01/20/20 7:37:00 EDT, Gel, [facility]/pharmacy #[id number], 1 application Topically 2 times a [...]
--- OUTSIDE RECORDS SUMMARY | 2023-08-19 18:49 | XMS_ITS | Continuity of Care Document ---
Author Name Unknown Organization [facility] lt Address [address] [place] [address]- Care Team Providers Care Youth Court Judge Name Role Phone Francis DORAN, Kamila Yang Primary Care Physician [place] [facility] [place] 12/10/19 - 12/17/19 [facility] Adult [address] [place] [address]- [facility] Attending Physician: Malcolm ESPITIA, Anthony Adler Referring Physician: Kaimla Blanco NP Allergies, Adverse Reactions, Alerts Substance [...] 01/15/19 7:41:04 EDT, Route to Pharmacy Electronically, [id number], [facility]/pharmacy #[id number] Start Date: 01/15/19 Status: Ordered doxycycline hyclate 100 mg oral capsule 2 capsule = 200 mg, By Mouth, Once, # 2 capsule, 0 Refills, Soft Stop, 12/10/19 14:52:00 EDT, [facility]/pharmacy #[id number], 162.56, cm, 12/10/19 14:28:00 EDT, Height Start Date: 12/10/19 Status: Ordered EpiPen 2-Dayday 0.3 mg injectable kit See Instructions, Intramuscular Once, # 1 kit, 1 Refills, Soft Stop Start Date: 03/15/13 Status: Ordered levothyroxine 150 mcg (0.15 mg) oral tablet 1 tablet = 150 mcg, By Mouth, Daily, # 90 tablet, 1 Refills, Maintenance, 09/15/19 12:16:00 EST, Tablet, [facility]/pharmacy #[id number], 162.56, cm, 01/15/19 6:52:00 EDT, Height [...] Hypertension(Confirmed) Active Hypothyroid(Confirmed) Active Acne rosacea(Confirmed) Active Vital Signs Most recent to oldest [Reference Range]: 1 Height 162.56 cm (12/10/19 2:28 PM) Weight 71.8 kg (12/10/19 2:28 PM) Oxygen Saturation [94-100 %] 98 % (12/10/19 2:28 PM) Pulse Rate [55-90 bpm] 69 bpm (12/10/19 2:28 PM) Body Mass Index [18.5-24.99] 27.17 *H* (12/10/19 2:28 PM) Blood Pressure [90-138/55-84 mm Hg] 138/ 70mm Hg (12/10/19 2:28 PM) Respiratory Rate [16-30 br/min] 12 br/mi n *L* (12/10/19 2:28 PM) Temperature [96.8-100.4 DegF] 97.8 DegF (12/10/19 2:28 PM) Mode of Delivery (Oxygen) Room air (12/10/19 2:28 PM) Blood pressure sites Arm, right (12/10/19 2:28 PM) Temperature Route Oral (12/10/19 2:28 PM) Weight Obtained Via Pediatric scale (12/10/19 2:28 PM) Social History Social History Type Response Smoking Status Never smoker entered on: 02/10/16 Sex
--- OUTSIDE RECORDS SUMMARY | 2023-08-19 18:49 | XMS_ITS | Continuity of Care Document ---
Author Name Unknown Organization [facility] Tee lt Address [address] [place] [address]- Care Team Providers Care Hide Spreader Name Role Phone Francis DORAN, Kamila Yang Primary Care Physician Encounter [facility] Date(s): 09/24/21 - 10/24/21 [facility] Adult [address] [place] [address]- Allergies, Adverse Reactions, Alerts Substance Reaction Severity [...] tablet, 2 Refills, Maintenance, 06/15/21 10:15:00 EDT, [facility]/pharmacy#[id number], 162.2, cm, 02/16/21 15:34:00 EDT, Height, 72.6, [...] each, 4 Refills, Maintenance,02/16/21 15:21:00 EDT, [facility]/pharmacy #[id number], Partial fill upon patient request if the prescription isfor a schedule II opioid drug., 1 spray each nostri... Start Date: 02/16/21 Status: Ordered lantanoprost eye drops lantanoprost eye drops, Refills 0, Maintenance, 08/17/21 9:09:00 EST, Supply Start Date: 08/17/21 Status: Ordered levothyroxine 150 mcg (0.15 mg) oral tablet 1 tablet, By Mouth, Daily, # 90 tablet, 1 Refills, [facility] [address]22, 162.2, cm, 08/24/21 13:32:00 EST, Height, 72.6, [...]
--- OUTSIDE RECORDS SUMMARY | 2023-08-19 18:49 | XMS_ITS | Continuity of Care Document ---
Author Name Unknown Organization [facility] lt Address [address] [place] [address]- Care Team Providers Care Help Desk Technician Name Role Phone Francis DORAN, Kamila Yang Primary Care Physician [place] [facility] [place](s[place] 02/06/22 - 02/13/22 [facility] Adult [address] [place] [address]- Encounter Diagnosis Medicare annual wellness visit, subsequent(Discharge Diagnosis) - 02/06/22 Hypertension(Discharge Diagnosis) - 02/06/22 Hypothyroid(Discharge Diagnosis) - 02/06/22 MIA (obstructive sleep apnea)(Discharge Diagnosis) - 02/06/22 Attending Physician: Kamila Blanco NP Referring Physician: [...] tetanus-diphtheria toxoids (Td) 11/05/06 [place] [facility] [place] 2[place] Comment: [08/30/2014] Received at work Medications amLODIPine 5 mg oral tablet 1 tablet, By Mouth, Daily, # 90 tablet, 2 Refills, Maintenance, 06/15/21 10:15:00 EDT, [facility]/pharmacy#[id number], 162.2, cm, 02/16/21 15:34:00 EDT, Height, 72.6, kg, 06/30/20 12:02:00 EDT, Dry Weight Start Date: 06/15/21 Status: Ordered AutoCPAP 9-12 with heated humidification [...] # 90 tablet, 1 Refills, [facility], 162.2, cm, 08/24/21 13:32:00 EST, Height, 72.6, kg, 06/30/20 12:02:00 EDT, Dry Weight Start Date: 09/12/21 Status: Ordered Magnesium Citrate By Mouth, 0 Refills, Maintenance, 08/13/17 9:06:37 Start Date: 08/13/17 Status: Ordered metroNIDAZOLE 0.75% topical gel 1 application, Topically, 2 times a day, # 45 Gm, 5 Refills, Maintenance, 01/20/20 7:37:00 EDT, Gel, [facility]/pharmacy #[id number], 1 application Topically 2 [...] Effective Dates Health Status Clinical Service Informant Medicare annual wellness visit, subsequent Discharge Diagnosis 02/06/22 Hypertension Discharge Diagnosis 02/06/22 Hypothyroid Discharge Diagnosis 02/06/22 MIA (obstructive sleep apnea) Discharge Diagnosis 02/06/22 Vital Signs Most recent to oldest [Reference Range]: 1 Height 162.2 cm (02/06/22 8:46 AM) Weight 71 kg (02/06/22 8:46 AM) Oxygen Saturation [94-100 %] 96 % (02/06/22 8:46 AM) Pulse Rate [55-90 bpm] 76 bpm (02/06/22 8:46 AM) Body Mass Index [18.5-24.99] 26.99 *H* (02/06/22 8:46 AM) Blood Pressure [90-138/55-84 mm Hg] 128/ 77mm Hg (02/06/22 8:46 AM) Temperature [96.8-100.4 DegF] 97.9 DegF (02/06/22 8:46 AM) Blood pressure sites Arm, right (02/06/22 8:46 AM) Temperature Route Temporal (02/06/22 8:46 AM) Weight Obtained Via Standing scale (02/06/22 8:46 AM) Social History Social History Type Response Smoking Status Never smoker entered on: 02/10/16 Sex
--- OUTSIDE RECORDS SUMMARY | 2023-08-19 18:49 | XMS_ITS | Continuity of Care Document ---
Author Name Unknown Organization [facility] Tee lt Address [address] [place] [address]- Care Team Providers Care Lamp Shade Assembler Name Role Phone Francis DORAN, Kamila Yang Primary Care Physician Encounter [facility] Date(s): 08/23/21 - 09/22/21 [facility] Adult [address] [place] [address]- Allergies, Adverse Reactions, Alerts Substance Reaction Severity [...] tablet, 2 Refills, Maintenance, 06/15/21 10:15:00 EDT, [facility]/pharmacy#[id number], 162.2, cm, 02/16/21 15:34:00 EDT, Height, [...] 1 each, 4 Refills, Maintenance,02/16/21 15:21:00 EDT, [facility]/pharmacy #[id number], Partial fill upon patient request if the prescription isfor a schedule II opioid drug., 1 spray each nostri... Start Date: 02/16/21 Status: Ordered lantanoprost eye drops lantanoprost eye drops, Refills 0, Maintenance, 08/17/21 9:09:00 EST, Supply Start Date: 08/17/21 Status: Ordered levothyroxine 150 mcg (0.15 mg) oral tablet 1 tablet, By Mouth, Daily, # 90 tablet, 1 Refills, [facility] 93633, 162.2, cm, 08/24/21 13:32:00 EST, Height, 72.6, [...]
--- OUTSIDE RECORDS SUMMARY | 2023-08-19 18:49 | XMS_ITS | Continuity of Care Document ---
Author Name Unknown Organization [facility] T[facility] lt Address [address] [place] [address]- Care Team Providers Care Green Pipefitter Name Role Phone Francis DORAN, Kamila Yang Primary Care Physician Encounter [facility] Date(s): 08/07/21 - 09/06/21 [facility] Adult [address] [place] [address]- Allergies, Adverse Reactions, Alerts Substance Reaction Severity [...] Maintenance, 01/20/20 7:37:00 EDT, Gel, [facility]/pharmacy #[id number], 1 application Topically [...]
--- OUTSIDE RECORDS SUMMARY | 2023-08-19 18:49 | XMS_ITS | Continuity of Care Document ---
Author Name Unknown Organization [facility] Address [address] [facility] [place] [address]- Care Team Providers Care Supervisor Final Name Role Phone Francis DORAN, Kamila Yang Primary Care Physician Encounter 04/18/20 - 04/25/20 [facility] [address], [address] [place] [address]- [phone] Attending Physician: Francis DORAN, Kamila Yang Admitting Physician: Francis DORAN, Kamila Yang Referring Physician: Kamila Blanco NP Allergies, Adverse Reactions, [...] tetanus-diphtheria toxoids (Td) 11/05/06 Given 1Location History: [facility] [place] employer 2Result Comment: [08/30/2014] Received at work Medications amLODIPine 5 mg oral tablet 5 mg, 1, tablet, By Mouth, Daily, # 90 tablet, Refills 1, Tot. Refills 1, Maintenance, 01/20/20 7:23:00 EDT, Route to Pharmacy Electronically, [facility]/pharmacy #[id number], 162.56, cm, 01/20/20 6:47:00 EDT, Height Start Date: 01/20/20 Status: Ordered EpiPen 2-Dayday 0.3 mg injectable kit See Instructions, Intramuscular Once, # 1 kit, 1 Refills, Soft Stop Start Date: 03/15/13 Status: Ordered levothyroxine 150 mcg (0.15 mg) oral tablet 1 tablet = 150 mcg, By Mouth, Daily, # 90 tablet, 1 Refills, Maintenance, 03/08/20 10:55:00 EDT, Tablet, [facility]/pharmacy #[id number], 162.56, cm, 02/22/20 7:38:00 EDT, Height [...] Refills, Maintenance, 01/28/20 8:24:00 EDT, REC Powder, [facility]/pharmacy #[id number], test date 06/30/20, 240 mL By [...]
--- OUTSIDE RECORDS SUMMARY | 2023-08-19 18:49 | XMS_ITS | Continuity of Care Document ---
Author Name Unknown Organization [facility] Tee lt Address [address] [place] [address]- Care Team Providers Care Construction Equipment Technician Name Role Phone Francis DORAN, Kamila Yang Primary Care Physician [place] [facility] [place] 07/04/20 [facility] Adult [address] [place] [address]- [facility] Attending Physician: Anthony Fowler MD Allergies, Adverse Reactions, [...] 01/20/20 7:23:00 EDT, Route to Pharmacy Electronically, [facility]/pharmacy #[id number], 162.56, cm, 01/20/20 6:47:00 EDT, Height Start Date: 01/20/20 Status: Ordered doxycycline hyclate 100 mg oral tablet 2 tablet = 200 mg, By Mouth, Once, # 2 tablet, 0 Refills, Soft Stop, 06/27/20 14:48:00 EDT, [facility]/pharmacy #[id number], 162.56, cm, 06/27/20 14:25:00 EDT, Height Start Date: 06/27/20 Status: Ordered EpiPen 2-Dayday 0.3 mg injectable kit See Instructions, Intramuscular Once, # 1 kit, 1 Refills, Soft Stop Start Date: 03/15/13 Status: Ordered levothyroxine 150 mcg (0.15 mg) oral tablet 1 tablet = 150 mcg, By Mouth, Daily, # 90 tablet, 1 Refills, Maintenance, 03/08/20 10:55:00 EDT, Tablet, [facility]/pharmacy #[id number], 162.56, cm, 02/22/20 7:38:00 EDT, Height Start Date: 03/08/20 Status: Ordered Magnesium Citrate By Mouth, 0 Refills, Maintenance, 08/13/17 9:06:37 Start Date: 08/13/17 Status: Ordered metroNIDAZOLE 0.75% topical gel 1 application, Topically, 2 times a day, # 45 Gm, 5 Refills, Maintenance, 01/20/20 7:37:00 EDT, Gel, [facility]/pharmacy #[id number], 1 application Topically 2 [...] Refills, Maintenance, 06/24/20 13:52:00 EDT, REC Powder, [facility]/pharmacy #[id number], test date 06/30/20, 240 mL [...] oldest [Reference Range]: 1 Height 162.56 cm (06/27/20 2:25 PM) Weight 75.3 kg (06/27/20 2:25 PM) Oxygen Saturation [94-100 %] 98 % (06/27/20 2:25 PM) Pulse Rate [55-90 bpm] 73 bpm (06/27/20 2:25 PM) Body Mass Index [18.5-24.99] 28.49 *H* (06/27/20 2:25 PM) Blood Pressure [90-138/55-84 mm Hg] 124/ 80mm Hg (06/27/20 2:25 PM) Temperature [96.8-100.4 DegF] 98.0 DegF (06/27/20 2:25 PM) Blood pressure sites Arm, left (06/27/20 2:25 PM) Temperature Route Oral (06/27/20 2:25 PM) Weight Obtained Via Standing scale (06/27/20 2:25 PM) Social History Social History Type Response Smoking Status Never smoker entered on: 02/10/16 Sex
--- OUTSIDE RECORDS SUMMARY | 2023-08-19 18:49 | XMS_ITS | Continuity of Care Document ---
Author Name Unknown Organization [facility] Tee lt Address [address] [place] [address]- Care Team Providers Care Clam Shucking Machine Tender Name Role Phone Francis DORAN, Kamila Yang Primary Care Physician [phone] En[place] [facility] [place] Date(s): 01/01/22 - 01/31/22 [facility] Adult [address] [place] [address]- Allergies, Adverse Reactions, Alerts Substance Reaction Severity [...] tablet, 2 Refills, Maintenance, 06/15/21 10:15:00 EDT, [facility]/pharmacy#[id number], 162.2, cm, 02/16/21 15:34:00 EDT, Height, [...] 1 each, 4 Refills, Maintenance,02/16/21 15:21:00 EDT, [facility]/pharmacy #[id number], Partial fill upon patient request if the prescription isfor a schedule II opioid drug., 1 spray each nostri... Start Date: 02/16/21 Status: Ordered lantanoprost eye drops lantanoprost eye drops, Refills 0, Maintenance, 08/17/21 9:09:00 EST, Supply Start Date: 08/17/21 Status: Ordered levothyroxine 150 mcg (0.15 mg) oral tablet 1 tablet, By Mouth, Daily, # 90 tablet, 1 Refills, [facility] 92260, 162.2, cm, 08/24/21 13:32:00 EST, Height, 72.6, [...]
--- OUTSIDE RECORDS SUMMARY | 2023-08-19 18:50 | XMS_ITS | Continuity of Care Document ---
Author Name Unknown Organization [facility] Tee lt Address [address] [place] [address]- Care Team Providers Care Hotel And Dining Room Cashier Name Role Phone Francis DORAN, Kamila Yang Primary Care Physician [phone] Encounter [facility] [place] Date(s): 06/26/22 - 07/03/22 [facility] Adult [address] [place] [address]- Encounter Diagnosis Foot pain(Discharge Diagnosis) - 06/26/22 Attending Physician: Gianni DORAN, Penelope Golden Allergies, [...] tetanus-diphtheria toxoids (Td) 11/05/06 Given 1Location [place] [facility] [place] 2Result Comment: [08/30/2014] Received at work Medications amLODIPine 5 mg oral tablet 1 tablet, By Mouth, Daily, # 90 tablet, 2 Refills, [facility], 162.2, cm, 02/06/22 8:46:00 EDT, Height, 72.6, [...] Refills, Maintenance, 05/07/22 12:32:00 EDT, [facility], 90, INHALE 1 SPRAY INTO EACH NOSTRIL TWICE A DAY NEEDED FOR NASAL CONGESTIO... Start Date: 05/07/22 Status: Ordered lantanoprost eye drops lantanoprost eye drops, Refills 0, Maintenance, 08/17/21 9:09:00 EST, Supply Start Date: 08/17/21 Status: Ordered levothyroxine 150 mcg (0.15 mg) oral tablet 1 tablet, By Mouth, Daily, # 90 tablet, 1 Refills, [facility], 162.2, cm, 02/06/22 8:46:00 EDT, Height, 72.6, kg, 06/30/20 12:02:00 EDT, Dry Weight Start Date: 03/27/22 Status: Ordered Magnesium Citrate By Mouth, 0 Refills, Maintenance, 08/13/17 9:06:37 Start Date: 08/13/17 Status: Ordered metroNIDAZOLE 0.75% topical gel 1 application, Topically, 2 times a day, # 45 Gm, 5 Refills, Maintenance, 01/20/20 7:37:00 EDT, Gel, [facility]/pharmacy #[id number], 1 application Topically 2 times [...] Dates Health Status Clini smith Service Informant Foot pain Discharge Diagnosis 06/26/22 Vital Signs Most recent to oldest [Reference Range]: 1 Height 162.2 cm (06/26/22 8:48 AM) Weight 67.9 kg (06/26/22 8:48 AM) Oxygen Saturation [94-100 %] 97 % (06/26/22 8:48 AM) Pulse Rate [55-90 bpm] 73 bpm (06/26/22 8:48 AM) Body Mass Index [18.5-24.99 kg/m2] 25.81 kg/m2 *H* (06/26/22 8:48 AM) Blood Pressure [90-138/55-84 mm Hg] 129/ 55mm Hg (06/26/22 8:48 AM) Blood pressure sites Arm, left (06/26/22 8:48 AM) Weight Obtained Via Standing scale (06/26/22 8:48 AM) Social History Social History Type Response Smoking Status Never smoker entered on: 02/10/16 Sex Patient Care team information Personnel Name: Francis DORAN, Kamila Yang Address: Address: [address] [place] [id number]
--- OUTSIDE RECORDS SUMMARY | 2023-08-19 18:50 | XMS_ITS | Continuity of Care Document ---
Author Name Unknown Organization [facility] Tee lt Address [address] [place] [address]- Care Team Providers Care Telegraph Office Telephone Clerk Name Role Phone Francis DORAN, Kamila Yang Primary Care Physician [phone] Encounter [facility] Date(s): 02/08/23 - 02/15/23 [facility] Adult [address] [place] [address]- Encounter Diagnosis Medicare annual wellness visit, subsequent(Discharge Diagnosis) - 02/08/23 Hypertension(Discharge Diagnosis) - 02/08/23 Hypothyroid(Discharge Diagnosis) - 02/08/23 Attending Physician: Kamila Blanco NP Referring Physician: Malcolm ESPITIA, Anthony Adler Allergies, Adverse Reactions, Alerts Substance Reaction Severity Status Bee Stings eye itching, swellin g local swelling Active egg-containing compound mucus buildup Act sandeep Other Food Allergy dairy products - mucus buildup Active Immunizations Given and Recorded Vaccine Date Status Refusal Reason tetanus/diphtheria/pertussis, acel(Tdap) 01/06/23 Recorded [id number] bivalent booster vax 07/18/22 Recorded influenza virus [...] tetanus-diphtheria toxoids (Td) 11/05/06 Given 1Location History: [facility] [place] employer 2Result Comment: [08/30/2014] Received at work Medications amLODIPine 5 mg oral tablet 1 tablet, By Mouth, Daily, # 90 tablet, 2 Refills, Maintenance, 02/11/23 9:51:00 EDT, [facility], 162.2, cm, 02/08/23 7:19:00 EDT, Height Start [...] Refills, Maintenance, 11/08/22 11:15:00 EST, [facility], 90, INHALE 1 SPRAY INTO EACH NOSTRIL TWICE A DAY NEEDED FOR NASAL CONGESTIO... Start Date: 11/08/22 Status: Ordered lantanoprost eye drops lantanoprost eye drops, Refills 0, Maintenance, 08/17/21 9:09:00 EST, Supply Start Date: 08/17/21 Status: Ordered levothyroxine 150 mcg (0.15 mg) oral tablet 1 tablet, By Mouth, Daily, # 90 tablet, 1 Refills, 08/08/22 8:07:00 EST, [facility]/pharmacy #[id number], 162.2,cm, 08/08/22 7:43:00 EST, Height Start Date: 08/08/22 Status: Ordered Magnesium Citrate By Mouth, 0 Refills, Maintenance, 08/13/17 9:06:37 Start Date: 08/13/17 Status: Ordered metroNIDAZOLE 0.75% topical gel 1 application, Topically, 2 times a day, # 45 Gm, 5 Refills, Maintenance, 01/20/20 7:37:00 EDT, Gel, [facility]/pharmacy #[id number], 1 application Topically [...] Medicare annual wellness visit, subsequent Discharge Diagnosis 02/08/23 Hypertension Discharge Diagnosis 02/08/23 Hypothyroid Discharge Diagnosis 02/08/23 Vital Signs Most recent to oldest [Reference Range]: 1 Height 162.2 cm (02/08/23 7:19 AM) Weight 70 kg (02/08/23 7:19 AM) Oxygen Saturation [94-100 %] 97 % (02/08/23 7:19 AM) Pulse Rate [55-90 bpm] 65 bpm (02/08/23 7:19 AM) Body Mass Index [18.5-24.99 kg/m2] 26.61 kg/m2 *H* (02/08/23 7:19 AM) Blood Pressure [90-138/55-84 mm Hg] 131/ 81mm Hg (02/08/23 7:19 AM) Blood pressure sites Arm, left (02/08/23 7:19 AM) Social History Social History Type Response Smoking Status Never smoker entered on: 02/10/16 Sex Note * Madie Austin: PERFORM, SIGN, VERIFY Event Display: Patient Education/Instruction Authored Date: [id number] [facility] *BMP So Shiva Douglas Clinical Summary Name JEANNIE CARY Age 67 Years 1955 PCP Francis DORAN, Kamila Yang PCP Visit Date 02/08/2023 07:15:00 Additional Instructions: Scheduled Appointments?? Future Appointments ?No Future Appointments Scheduled Follow-Up Instructions ?? With: Address: When: Follow up, 1 Year for Physical Diagnosis Hypothyroidism, unspecified; Essential (primary) hypertension; Encounter for general adult medical examination without abnormal findings Medications: Please continue your medications until treatment [...] FOR NASAL CONGESTION. Refills: 5. Next Dose: latanoprost-netarsudil ophthalmic (Rocklatan 0.02%-0.005% ophthalmic solution) 1 Drops Daily beforedinner. Next Dose: Levothyroxine (levothyroxine 150 mcg (0.15 [...] tablet) 1 tab(s) Oral Daily. Next Dose: [place]-3 Polyunsaturated Fatty Acids ([employer]'s Bounty Red Krill Oil) 1,000 Milligram Oral twice a day. Next Dose: No Longer Take the Following Medications Doxycycline (doxycycline hyclate 100 mg oral capsule) 1 capsule Oral twice a day for 10 Days. Refills: 0. Allergy Info:?? Other Food Allergy; egg-containing compound; Bee Stings Medications Given This Visit Future Orders ?No future orders Vital Signs Height 162.2 cm Weight 70 kg BMI 26.61 kg/m2 Blood Pressure 131 mm Hg/81 mm Hg Temperature Pulse Rate 65 bpm Respiratory Rate 02 Sat Mode of Delivery 97 %/ You can now view a summary of your hospital visit from the comfort of your home through a free online portal called [employer]. [employer] is a website that allows you to securely view your medical information including discharge summary, medications and follow-up visits. ??You can alsosend a secure electronic message to your doctor???s office to request appointments, renew medications or just ask a question. You can enroll at [email or web address] or register during your next [...] primary care provider, you may find a [facility] provider by calling [facility] [employer] Link at [phone]. For information about the plan of care [...] Associate Professional Member Role: PCP Address: Address: [address] [place] [address]- Care Team Related Persons Name: RENATA CARY Address: home [address] [place] [address] Name: FREDY CARY Address: home [address] [place] [address]
--- OUTSIDE RECORDS SUMMARY | 2023-08-19 18:50 | XMS_ITS | Continuity of Care Document ---
Author Name Unknown Organization [facility] Tee lt Address [address] [place] [address]- Care Team Providers Care Change Director Name Role Phone Francis DORAN, Kamila Yang Primary Care Physician [facility]counter [facility] Date(s): 06/27/22 - 07/27/22 [facility] Adult [address] [place] [address]- Allergies, Adverse Reactions, Alerts Substance Reaction Severity [...] tetanus-diphtheria toxoids (Td) 11/05/06 Given 1Location History: [employer] employer 2Result Comment: [08/30/2014] Received at work Medications amLODIPine 5 mg oral tablet 1 tablet, By Mouth, Daily, # 90 tablet, 2 Refills, [facility], 162.2, cm, 02/06/22 8:46:00 EDT, Height, 72.6, [...] Refills, Maintenance, 05/07/22 12:32:00 EDT, [facility], 90, INHALE 1 SPRAY INTO EACH NOSTRIL TWICE A DAY NEEDED FOR NASAL CONGESTIO... Start Date: 05/07/22 Status: Ordered lantanoprost eye drops lantanoprost eye drops, Refills 0, Maintenance, 08/17/21 9:09:00 EST, Supply Start Date: 08/17/21 Status: Ordered levothyroxine 150 mcg (0.15 mg) oral tablet 1 tablet, By Mouth, Daily, # 90 tablet, 1 Refills, [facility], 162.2, cm, 02/06/22 8:46:00 EDT, Height, 72.6, [...] Associate Professional Member Role: PCP Address: Address: [address] [place] [address]- Care Team Related Persons Name: RENATA CARY Address: home [address] [place] [address] Name: FREDY CARY Address: home [address] [place] [address]
--- OUTSIDE RECORDS SUMMARY | 2023-08-19 18:50 | XMS_ITS | Continuity of Care Document ---
Author Name Unknown Organization [facility] Tee lt Address [address] [place] [address]- Care Team Providers Care Blood Bank Assistant Name Role Phone Francis DORAN, Kamila Yang Primary Care Physician [place] [facility] [place] 02/03[place]21 - 03/05/21 [facility] Adult [address] [place] [address]- Attending Physician: Anisha Santiago Admitting Physician: AdmAnisha [...] tablet, 1 Refills, Maintenance, 01/03/21 7:12:00 EDT, [facility]/pharmacy #[id number], 162.2, cm, 06/30/20 12:02:00 [...] 1 each, 4 Refills, Maintenance,02/16/21 15:21:00 EDT, [facility]/pharmacy #[id number], Partial fill upon patient request if the prescription isfor a schedule II opioid drug., 1 spray each nostri... Start Date: 02/16/21 Status: Ordered levothyroxine 150 mcg (0.15 mg) oral tablet 1 tablet = 150 mcg, By Mouth, Daily, # 90 tablet, 1 Refills, Maintenance, 02/20/21 16:10:00 EDT, Tablet, [facility]/pharmacy #[id number], 162.2, cm, 02/16/21 15:34:00 EDT, Height, 72.6, kg, 06/30/20 12:02:00 EDT,Dry Weight Start Date: 02/20/21 Status: Ordered Magnesium Citrate By Mouth, 0 Refills, Maintenance, 08/13/17 9:06:37 Start Date: 08/13/17 Status: Ordered metroNIDAZOLE 0.75% topical gel 1 application, Topically, 2 times a day, # 45 Gm, 5 Refills, Maintenance, 01/20/20 7:37:00 EDT, Gel, [facility]/pharmacy #[id number], 1 application Topically 2 [...]
--- OUTSIDE RECORDS SUMMARY | 2023-08-19 18:50 | XMS_ITS | Continuity of Care Document ---
Author Name Unknown Organization [facility] Tee lt Address [address] [place] [address]- Care Team Providers Care Computer Systems Engineer Name Role Phone Francis DORAN, Kamila Yang Primary Care Physician [phone] Encounter [facility] Date(s): 02/11/23 - 03/13/23 [facility] Adult [address] [place] [address]- Allergies, Adverse Reactions, Alerts Substance Reaction Severity Status Bee Stings eye itching, swellin g local swelling Active egg-containing compound mucus buildup Act sandeep Other Food Allergy dairy products - mucus buildup Active Immunizations Given and Recorded Vaccine Date Status Refusal Reason tetanus/diphtheria/pertussis, acel(Tdap) 01/06/23 Recorded [id number] bivalent booster vax 07/18/22 Recorded influenza virus [...] tetanus-diphtheria toxoids (Td) 11/05/06 Given 1Location History: [facility] [place] employer 2Result Comment: [08/30/2014] Received at work Medications amLODIPine 5 mg oral tablet 1 tablet, By Mouth, Daily, # 90 tablet, 2 Refills, Maintenance, 02/11/23 9:51:00 EDT, [facility], 162.2, cm, 02/08/23 7:19:00 EDT, Height Start Date: 02/11/23 Status: Ordered AutoCPAP 9-12 with heated humidification AutoCPAP 9-12 with heated humidification, See Instructions, # 1 each, Refills 0, Tot. Refills 0, Maintenance, use overnight and naps from [facility], 01/16/22 12:22:00 EDT, Compound Start Date: 01/16/22 Status: Ordered EpiPen 2-Dayday 0.3 mg injectable kit See Instructions, Intramuscular Once, # 1 kit, 1 Refills, Soft Stop Start Date: 03/15/13 Status: Ordered ipratropium nasal 21 mcg/inh spray See Instructions, INHALE 1 SPRAY INTO EACH NOSTRIL TWICE A DAY NEEDED FOR NASAL CONGESTION, # 90Unknown, 5 Refills, Maintenance, 11/08/22 11:15:00 EST, [facility], 90, INHALE 1 SPRAY INTO EACH NOSTRIL TWICE A DAY NEEDED FOR NASAL CONGESTIO... Start Date: 11/08/22 Status: Ordered lantanoprost eye drops lantanoprost eye drops, Refills 0, Maintenance, 08/17/21 9:09:00 EST, Supply Start Date: 08/17/21 Status: Ordered levothyroxine 150 mcg (0.15 mg) oral tablet 1 tablet, By Mouth, Daily, # 90 tablet, 1 Refills, Maintenance, 03/13/23 10:05:00 EDT, [facility], 162.2, cm, 02/08/23 7:19:00 EDT, Height Start Date: 03/13/23 Status: Ordered Magnesium Citrate By Mouth, 0 [...] Associate Professional Member Role: PCP Address: Address: [address] [place] [address]- [place] Care Team Related Persons Name: RENATA CARY Address: home [address] [place] [address] Name: FREDY CARY Address: home [address] [place] [address]
--- OUTSIDE RECORDS SUMMARY | 2023-08-19 18:50 | XMS_ITS | Continuity of Care Document ---
Author Name Unknown Organization [facility]iva Tee lt Address [address] [place] [address]- Care Team Providers Care Home Visit Field Care Manager Name Role Phone Francis DORAN, Kamila Yang Primary Care Physician Encounter [facility] Date(s): 07/19/21 - 08/18/21 [facility] Adult [address] [place] [address]- Allergies, Adverse Reactions, Alerts Substance Reaction Severity [...] Compound Start Date: 04/14/21 Status: Ordered EpiPen 2-Adyday 0.3 mg injectable kit See Instructions, Intramuscular [...] 5 Refills, Maintenance, 01/20/20 7:37:00 EDT, Gel, [facility]/pharmacy #[id number], 1 application Topically [...]
--- OUTSIDE RECORDS SUMMARY | 2023-08-19 18:50 | XMS_ITS | Continuity of Care Document ---
Author Name Unknown Organization [facility] Address [address] [place] [address]- Care Team Providers Care Jig Builder Name Role Phone Francis DORAN, Kamila Yang Primary Care Physician [phone] Encounter [facility] Date(s): 01/30/20 - 02/29/20 [facility] [address] [place] [address]- [facility] Attending Physician: Anisha Santiago Admitting Physician: Anisha [...] 01/20/20 7:23:00 EDT, Route to Pharmacy Electronically, [facility]/pharmacy #[id number], 162.56, cm, 01/20/20 6:47:00 EDT, Height Start Date: 01/20/20 Status: Ordered EpiPen 2-Dayday 0.3 mg injectable kit See Instructions, Intramuscular Once, # 1 kit, 1 Refills, Soft Stop Start Date: 03/15/13 Status: Ordered levothyroxine 150 mcg (0.15 mg) oral tablet 1 tablet = 150 mcg, By Mouth, Daily, # 90 tablet, 1 Refills, Maintenance, 09/15/19 12:16:00 EST, Tablet, [facility]/pharmacy #[id number], 162.56, cm, 01/15/19 6:52:00 EDT, [...] Refills, Maintenance, 01/28/20 8:24:00 EDT, REC Powder, [facility]/pharmacy #[id number], test date 06/30/20, 240 [...]
--- OUTSIDE RECORDS SUMMARY | 2023-08-19 18:50 | XMS_ITS | Continuity of Care Document ---
Author Name Unknown Organization [facility] Tee lt Address [address] [place] [address]- Care Team Providers Care Envelope Fold Operator Name Role Phone Francis DORAN, Kamila Yang Primary Care Physician [phone] Encounter [facility] Date(s): 02/14/23 - 03/16/23 [facility] Adult [address] [place] [address]- Allergies, Adverse Reactions, Alerts Substance Reaction Severity Status Bee Stings eye itching, swellin g local swelling Active egg-containing compound mucus buildup Act sandeep Other Food Allergy dairy products - mucus buildup Active Immunizations Given and Recorded Vaccine Date Status Refusal Reason tetanus/diphtheria/pertussis, acel(Tdap) 01/06/23 Recorded [id number] bivalent booster vax 07/18/22 Recorded influenza virus [...] tetanus-diphtheria toxoids (Td) 11/05/06 Given 1Location History: [facility] 2Result Comment: [08/30/2014] Received at work Medications amLODIPine 5 mg oral tablet 1 tablet, By Mouth, Daily, # 90 tablet, 2 Refills, Maintenance, 02/11/23 9:51:00 EDT, [facility], 162.2, cm, 02/08/23 7:19:00 EDT, Height Start Date: 02/11/23 Status: Ordered AutoCPAP 9-12 with heated humidification AutoCPAP 9-12 with heated humidification, See Instructions, # 1 each, Refills 0, Tot. Refills 0, Maintenance, use overnight and naps from [facility], 01/16/22 12:22:00 EDT, Compound Start Date: 01/16/22 Status: Ordered EpiPen 2-Dayday 0.3 mg injectable kit See Instructions, Intramuscular Once, # 1 kit, 1 Refills, Soft Stop Start Date: 03/15/13 Status: Ordered ipratropium nasal 21 mcg/inh spray See Instructions, INHALE 1 SPRAY INTO EACH NOSTRIL TWICE A DAY NEEDED FOR NASAL CONGESTION, # 90Unknown, 5 Refills, Maintenance, 11/08/22 11:15:00 EST, [facility], 90, INHALE 1 SPRAY INTO EACH NOSTRIL TWICE A DAY NEEDED FOR NASAL CONGESTIO... Start Date: 11/08/22 Status: Ordered lantanoprost eye drops lantanoprost eye drops, Refills 0, Maintenance, 08/17/21 9:09:00 EST, Supply Start Date: 08/17/21 Status: Ordered levothyroxine 150 mcg (0.15 mg) oral tablet 1 tablet, By Mouth, Daily, # 90 tablet, 1 Refills, Maintenance, 03/13/23 10:05:00 EDT, [facility], 162.2, cm, 02/08/23 7:19:00 EDT, Height Start [...] Associate Professional Member Role: PCP Address: Address: [address] [place] [address]- [place] Care Team Related Persons Name: RENATA CARY Address: home [address] [place] [address] Name: FREDY CARY Address: home [address] [place] [address]
--- OUTSIDE RECORDS SUMMARY | 2023-08-19 18:50 | XMS_ITS | Continuity of Care Document ---
Author Name Unknown Organization [facility] Tee lt Address [address] [place] [address]- Care Team Providers Care Global Marketing Coordinator Name Role Phone Francis DORAN, Kamila Yang Primary Care Physician [phone] Encounter [facility] Date(s): 07/31/21 - 08/07/21 [facility] Adult [address] [place] [address]- Encounter Diagnosis Hypertension(Discharge Diagnosis) - 07/31/21 Jaw pain(Discharge Diagnosis) - 07/31/21 Grieving(Discharge Diagnosis) - 07/31/21 Attending Physician: Francis DORAN, Kamila Yang Allergies, Adverse [...] tetanus-diphtheria toxoids (Td) 11/05/06 Given 1Location History: [facility] [place] employer 2Result Comment: [08/30/2014] Received at work Medications amLODIPine 5 mg oral tablet 1 tablet, By Mouth, Daily, # 90 tablet, 2 Refills, Maintenance, 06/15/21 10:15:00 EDT, [facility]/pharmacy#[id number], 162.2, cm, 02/16/21 15:34:00 EDT, [...] Cl inical Service Informant Hypertension Discharge Diagnosis 07/31/21 Jaw pain Discharge Diagnosis 07/31/21 Grieving Discharge Diagnosis 07/31/21 Vital Signs Most recent to oldest [Reference Range]: 1 2 3 Height 162.2 cm (07/31/21 9:15 AM) 162.2 cm (07/31/21 9:02 AM) 162.2 cm (07/31/21 8:24 AM) Weight 70.4 kg (07/31/21 8:24 AM) Oxygen Saturation [94-100 %] 96 % (07/31/21 8:24 AM) Pulse Rate [55-90 bpm] 81 bpm (07/31/21 8:24 AM) Body Mass Index [18.5-24.99] 26.76 *H* (07/31/21 8:24 AM) Blood Pressure [90-138/55-84 mm Hg] 160/80mm Hg *H* (07/31/21 9:15 AM) 163/90mm Hg *H* (07/31/21 9:02 AM) 147/93mm Hg *H* (07/31/21 8:24 AM) Temperature [96.8-100.4 DegF] 97.6 DegF (07/31/21 8:24 AM) Blood pressure sites Arm, right (07/31/21 9:02 AM) Arm, right (07/31/21 8:24 AM) Temperature Route Oral (07/31/21 8:24 AM) Weight Obtained Via Standing scale (07/31/21 8:24 AM) Social History Social History Type Response Smoking Status Never smoker entered on: 02/10/16 Sex
--- OUTSIDE RECORDS SUMMARY | 2023-08-19 18:50 | XMS_ITS | Continuity of Care Document ---
Author Name Unknown Organization [facility] Tee lt Address [address] [place] [address]- Care Team Providers Care Returner Name Role Phone Francis DORAN, Kamila Yang Primary Care Physician [facility] Date(s): 07/28/21 - 08/27/21 [facility] Adult [address] [place] [address]- Allergies, Adverse Reactions, Alerts Substance Reaction Severity [...] 5 Refills, Maintenance, 01/20/20 7:37:00 EDT, Gel, [facility]/pharmacy #[id number], 1 application Topically 2 [...]
--- OUTSIDE RECORDS SUMMARY | 2023-08-19 18:50 | XMS_ITS | Continuity of Care Document ---
Author Name Unknown Organization [facility] Tee lt Address [address] [place] [address]- Care Team Providers Care Under Water Assistant Name Role Phone Francis DORAN, Kamila Yang Primary Care Physician Encounter [facility] Date(s): 02/03/21 - 02/10/21 [facility] Adult [address] [place] [address]- [facility] - 02/03/21 Hypertension(Discharge Diagnosis) - 02/03/21 Hypothyroid(Discharge Diagnosis) - 02/03/21 Caregiver with fatigue(Discharge Diagnosis) - 02/03/21 Fatigue(Discharge Diagnosis) - 02/03/21 Attending Physician: Francis DORAN, Kamila Yang Referring Physician: Anthony Fowler MD Allergies, Adverse [...] tetanus-diphtheria toxoids (Td) 11/05/06 Given 1Location History: [facility] [place] employer 2Result Comment: [...] 1 Refills, Maintenance, 08/25/20 20:47:00 EST, [id number], 162.2, cm, 06/30/20 12:02:00 EDT, [...] Dates Health Status Clinical Service Informant Medicare welcome visit Discharge Diagnosis 02/03/21 Hypertension Discharge Diagnosis 02/03/21 Hypothyroid Discharge Diagnosis 02/03/21 Caregiver with fatigue Discharge Diagnosis 02/03/21 Fatigue Discharge Diagnosis 02/03/21 Vital Signs Most recent to oldest [Reference Range]: 1 Height 162.2 cm (02/03/21 8:02 AM) Weight 71.2 kg (02/03/21 8:02 AM) Oxygen Saturation [94-100 %] 97 % (02/03/21 8:02 AM) Pulse Rate [55-90 bpm] 70 bpm (02/03/21 8:02 AM) Body Mass Index [18.5-24.99] 27.06 *H* (02/03/21 8:02 AM) Blood Pressure [90-138/55-84 mm Hg] 130/ 78mm Hg (02/03/21 8:02 AM) Temperature [96.8-100.4 DegF] 97.6 DegF (02/03/21 8:02 AM) Blood pressure sites Arm, left (02/03/21 8:02 AM) Temperature Route Oral (02/03/21 8:02 AM) Weight Obtained Via Standing scale (02/03/21 8:02 AM) Social History Social History Type Response Smoking Status Never smoker entered on: 02/10/16 Sex
--- OUTSIDE RECORDS SUMMARY | 2023-08-19 18:50 | XMS_ITS | Continuity of Care Document ---
Author Name Unknown Organization [facility] Tee lt Address [address] [place] [address]- Care Team Providers Care Flight Instructor Name Role Phone Francis DORAN, Kamila Yang Primary Care Physician [phone] Encounter [facility] Date(s): 05/29/22 - 06/28/22 [facility] Adult [address] [place] [address]- Allergies, Adverse Reactions, Alerts Substance Reaction Severity [...] tetanus-diphtheria toxoids (Td) 11/05/06 Given 1Location History: [facility] [place] 2Result Comment: [08/30/2014] Received at work Medications amLODIPine 5 mg oral tablet 1 tablet, By Mouth, Daily, # 90 tablet, 2 Refills, [facility], 162.2, cm, 02/06/22 8:46:00 EDT, Height, 72.6, [...] Refills, Maintenance, 05/07/22 12:32:00 EDT, [facility], 90, INHALE 1 SPRAY INTO EACH NOSTRIL TWICE A DAY NEEDED FOR NASAL CONGESTIO... Start Date: 05/07/22 Status: Ordered lantanoprost eye drops lantanoprost eye drops, Refills 0, Maintenance, 08/17/21 9:09:00 EST, Supply Start Date: 08/17/21 Status: Ordered levothyroxine 150 mcg (0.15 mg) oral tablet 1 tablet, By Mouth, Daily, # 90 tablet, 1 Refills, [facility], 162.2, cm, 02/06/22 8:46:00 EDT, Height, 72.6, [...] Personnel Name: Kamila Blanco NP Address: Address: [address] [place] [address]
--- OUTSIDE RECORDS SUMMARY | 2023-08-19 18:50 | XMS_ITS | Continuity of Care Document ---
Author Name Unknown Organization [facility] Tee lt Address [address] [place] [address]- Care Team Providers Care Application Specialist Name Role Phone Francis DORAN, Kamila Yang Primary Care Physician [phone] Encounter [facility] Date(s): 08/08/22 - 08/15/22 [facility] Adult [address] [place] [address]- Encounter Diagnosis Hypothyroid(Discharge Diagnosis) - 08/08/22 Hypertension(Discharge Diagnosis) - 08/08/22 MIA (obstructive sleep apnea)(Discharge Diagnosis) - 08/08/22 Attending Physician: Francis DORAN, Kamila Yang Referring Physician: Anthony Fowler MD Allergies, Adverse Reactions, Alerts Substance Reaction Severity Status Bee Stings eye itching, swellin g local swelling Active egg-containing compound mucus buildup Act sandeep Other Food Allergy dairy products - mucus buildup Active Immunizations Given and Recorded Vaccine Date Status Refusal Reason [id number] bivalent booster vax 07/18/22 Recorded influenza virus [...] # 90 tablet, 2 [facility]ills, [facility], 162.2, cm, 02/06/22 8:46:00 EDT, Height, 72.6, [...] Refills, Maintenance, 05/07/22 12:32:00 EDT, [facility], 90, INHALE 1 SPRAY INTO EACH NOSTRIL TWICE A DAY NEEDED FOR NASAL CONGESTIO... Start Date: 05/07/22 Status: Ordered lantanoprost eye drops lantanoprost eye drops, Refills 0, Maintenance, 08/17/21 9:09:00 EST, Supply Start Date: 08/17/21 Status: Ordered levothyroxine 150 mcg (0.15 mg) oral tablet 1 tablet, By Mouth, Daily, # 90 tablet, 1 Refills, 08/08/22 8:07:00 EST, [facility]/pharmacy #[id number], 162.2,cm, 08/08/22 7:43:00 EST, [...] Effective Dates Health Status Clinical Service Informant Hypothyroid Discharge Diagnosis 08/08/22 Hypertension Discharge Diagnosis 08/08/22 MIA (obstructive sleep apnea) Discharge Diagnosis 08/08/22 Vital Signs Most recent to oldest [Reference Range]: 1 Height 162.2 cm (08/08/22 7:43 AM) Weight 66.5 kg (08/08/22 7:43 AM) Oxygen Saturation [94-100 %] 96 % (08/08/22 7:43 AM) Pulse Rate [55-90 bpm] 65 bpm (08/08/22 7:43 AM) Body Mass Index [18.5-24.99 kg/m2] 25.28 kg/m2 *H* (08/08/22 7:43 AM) Blood Pressure [90-138/55-84 mm Hg] 135/ 80mm Hg (08/08/22 7:43 AM) Blood pressure sites Arm, left (08/08/22 7:43 AM) Weight Obtained Via Standing scale (08/08/22 7:43 AM) Social History Social History Type Response Smoking Status Never smoker entered on: 02/10/16 Sex Note * Hannah Rey: PERFORM, SIGN, VERIFY Event Display: Patient Education/Instruction Authored Date: [id number] [facility] Clinical Summary Name JEANNIE CARY Age 66 Years 1955 PCP Francis DORAN, Kamila Yang PCP Visit Date 08/08/2022 07:42:00 Additional Instructions: Scheduled Appointments?? Future Appointments ?No Future Appointments Scheduled Follow-Up Instructions ?? With: Address: When: Francis DORAN, Kamila Yang [address] [place] [address] Road [facility] [place] [address] In 6 months Comments: AWV Diagnosis Obstructive sleep apnea (adult) (pediatric); Hypothyroidism, unspecified; Essential (primary) hypertension Medications: Please continue your medications until treatment is completed or stopped by your provider. Discuss any questions related to medications with your provider. Medications to Continue with No Changes [facility]/pharmacy #[id number], [address], [place] [id number], [phone] Levothyroxine (levothyroxine 150 mcg (0.15 mg) oral tablet) 1 tab(s) Oral Daily. Refills: 1. Next Dose: These medications were not printed or sent [...] A DAYAS NEEDED FOR NASAL CONGESTION. Refills: 1. Next Dose: Magnesium Citrate Oral. Next Dose: Metronidazole Topical (metroNIDAZOLE 0.75% topical gel) 1 valerio Topically twice a day for 30 Days. Refills: 5. Next Dose: Miscellaneous Rx (lantanoprost eye drops) Next Dose: Multivitamin (Super B Complex Vitamin B Complex oral tablet) 1 tab(s) Oral Daily. Next Dose: [place]-3 Polyunsaturated Fatty Acids (Nature's Bounty Red Krill Oil) 1,000 Milligram Oral twice a day. Next Dose: Allergy Info:?? Other Food Allergy; egg-containing compound; Bee Stings Medications Given This Visit Future Orders ?No future orders Vital Signs Height 162.2 cm Weight 66.5 kg BMI 25.28 kg/m2 Blood Pressure 135 mm Hg/80 mm Hg Temperature Pulse Rate 65 bpm Respiratory Rate 02 Sat Mode of Delivery 96 %/ You can now view a summary of your hospital visit from the comfort of your home through a free online portal called [employer]Spring. [employer]eSpring is a website that allows you to securely view your medical information including discharge summary, medications and follow-up visits. ??You can alsosend a secure electronic message to your doctor???s office to request appointments, renew medications or just ask a question. You can enroll at [email or web address] or register during your next [...] primary care provider, you may find a [facility] provider by calling [facility] at [phone]. For information about the plan of care [...] Associate Professional Member Role: PCP Address: Address: [address] [place] [address] [place] [address]- Care Team Related Persons Name: RENATA CARY Address: home [address] [place] [address] Name: FREDY CARY Address: home [address] [place] [address]
--- OUTSIDE RECORDS SUMMARY | 2023-08-19 18:50 | XMS_ITS | Continuity of Care Document ---
Author Name Unknown Organization [facility] Tee lt Address [address] [place] [address]- Care Team Providers Care Grinder Carbon Plant Name Role Phone Francis DORAN, Kamila Yang Primary Care Physician Encounter [facility] Date(s): 12/23/20 - 01/22/21 [facility] Adult [address] [place] [address]- Allergies, Adverse Reactions, Alerts Substance Reaction Severity [...] Dry Weight Start Date: 01/03/21 Status: Ordered doxycycline hyclate 100 mg oral tablet 2 tablet = 200 mg, By Mouth, Once, # 2 tablet, 0 Refills, Soft Stop, 06/27/20 14:48:00 EDT, [facility]/pharmacy #[id number], 162.56, cm, 06/27/20 14:25:00 EDT, Height Start Date: 06/27/20 Status: Ordered EpiPen 2-Dayday 0.3 mg injectable kit See Instructions, Intramuscular Once, # 1 kit, 1 Refills, Soft Stop Start Date: 03/15/13 Status: Ordered levothyroxine 150 mcg (0.15 mg) oral tablet 1 tablet = 150 mcg, By Mouth, Daily, # 90 tablet, 1 Refills, Maintenance, 08/25/20 20:47:00 EST, Tablet, [facility]/pharmacy #[id number], 162.2, cm, 06/30/20 12:02:00 EDT, [...] Refills, Maintenance, 06/24/20 13:52:00 EDT, REC Powder, [id number], test date 06/30/20, 240 mL By [...]
--- OUTSIDE RECORDS SUMMARY | 2023-08-19 18:50 | XMS_ITS | Continuity of Care Document ---
Author Name Unknown Organization [facility] Tee lt Address [address] [place] [address]- Care Team Providers Care Director Of Group Counseling Program Name Role Phone Francis DORAN, Kamila Yang Primary Care Physician Encounter [facility] Date(s): 11/13/21 - 11/20/21 [facility] Adult [address] [place] [address]- Encounter Diagnosis Hypertension(Discharge Diagnosis) - 11/13/21 Hypothyroid(Discharge Diagnosis) - 11/13/21 MIA (obstructive sleep apnea)(Discharge Diagnosis) - 11/13/21 Attending Physician: Francis DORAN, Kamila Yang Referring [...] tablet, 2 Refills, Maintenance, 06/15/21 10:15:00 EDT, [facility]/pharmacy#[id number], 162.2, cm, 02/16/21 15:34:00 EDT, Height, 72.6, kg, 06/30/20 12:02:00 EDT, Dry Weight Start Date: 06/15/21 Status: Ordered AutoCPAP 10-20 with heated humidification AutoCPAP 10-20 with heated humidification, See Instructions, # 1 each, Refills 0, Tot. Refills 0, Maintenance, use overnight and naps from [facility], 04/14/21 17:24:00 EDT, Compound Start Date: 04/14/21 [...] # 90 tablet, 1 Refills, [facility], 162.2, cm, 08/24/21 13:32:00 EST, Height, 72.6, [...] Status Clinical Service Informant Hypertension Discharge Diagnosis 11/13/21 Hypothyroid Discharge Diagnosis 11/13/21 MIA (obstructive sleep apnea) Discharge Diagnosis 11/13/21 Vital Signs Most recent to oldest [Reference Range]: 1 Height 162.2 cm (11/13/21 8:40 AM) Weight 71.3 kg (11/13/21 8:40 AM) Oxygen Saturation [94-100 %] 98 % (11/13/21 8:40 AM) Pulse Rate [55-90 bpm] 78 bpm (11/13/21 8:40 AM) Body Mass Index [18.5-24.99] 27.1 *H* (11/13/21 8:40 AM) Blood Pressure [90-138/55-84 mm Hg] 136/ 79mm Hg (11/13/21 8:40 AM) Temperature [96.8-100.4 DegF] 98.2 DegF (11/13/21 8:40 AM) Blood pressure sites Arm, left (11/13/21 8:40 AM) Temperature Route Oral (11/13/21 8:40 AM) Weight Obtained Via Standing scale (11/13/21 8:40 AM) Social History Social History Type Response Smoking Status Never smoker entered on: 02/10/16 Sex
--- OUTSIDE RECORDS SUMMARY | 2023-08-19 18:50 | XMS_ITS | Continuity of Care Document ---
Author Name Unknown Organization [facility] Address [address] [place] [address]- Care Team Providers Care Environmental Services Technician Name Role Phone Francis DROAN, Kamila Yang Primary Care Physician Encounter [facility] Date(s): 09/28/21 - 10/28/[address] [address]- Attending Physician: Anisha Santiago Admitting Physician: Anisha [...] tetanus-diphtheria toxoids (Td) 11/05/06 Given 1Location History: [facility] employer 2Result Comment: [08/30/2014] Received at work Medications amLODIPine 5 mg oral tablet 1 tablet, By Mouth, Daily, # 90 tablet, 2 Refills, Maintenance, 06/15/21 10:15:00 EDT, [facility]/pharmacy#[id number], 162.2, cm, 02/16/21 15:34:00 EDT, Height, 72.6, kg, 06/30/20 12:02:00 EDT, Dry Weight Start Date: 06/15/21 Status: Ordered AutoCPAP 10-20 with heated humidification AutoCPAP 10-20 with heated humidification, See Instructions, # 1 each, Refills 0, Tot. Refills 0, Maintenance, use overnight and naps from [facility], 04/14/21 17:24:00 EDT, Compound Start Date: 04/14/21 Status: Ordered EpiPen 2-Dayday 0.3 mg injectable kit See Instructions, Intramuscular Once, # 1 kit, 1 Refills, Soft Stop Start Date: 03/15/13 Status: Ordered ipratropium nasal 21 mcg/inh spray See Instructions, PRN Nasal Congestion, 1 spray each nostril BID, # 1 each, 4 Refills, Maintenance,02/16/21 15:21:00 EDT, [facility]/pharmacy #[id number], Partial fill upon patient request if the prescription isfor a schedule II opioid drug., 1 spray each nostri... Start Date: 02/16/21 Status: Ordered lantanoprost eye drops lantanoprost eye drops, Refills 0, Maintenance, 08/17/21 9:09:00 EST, Supply Start Date: 08/17/21 Status: Ordered levothyroxine 150 mcg (0.15 mg) oral tablet 1 tablet, By Mouth, Daily, # 90 tablet, 1 Refills, [facility], 162.2, cm, 08/24/21 13:32:00 EST, Height, 72.6, kg, 06/30/20 12:02:00 EDT, Dry Weight Start Date: 09/12/21 Status: Ordered Magnesium Citrate By Mouth, 0 Refills, Maintenance, 08/13/17 9:06:37 Start Date: 08/13/17 Status: Ordered metroNIDAZOLE 0.75% topical gel 1 application, Topically, 2 times a day, # 45 Gm, 5 Refills, Maintenance, 01/20/20 7:37:00 EDT, Gel, [facility]/pharmacy #[id number], 1 application Topically [...]
--- OUTSIDE RECORDS SUMMARY | 2023-08-19 18:50 | XMS_ITS | Continuity of Care Document ---
Author Name Unknown Organization [facility] Tee lt Address [address] [place] [address]- Care Team Providers Care Sporting Goods Salesperson Name Role Phone Francis DORAN, Kamila Yang Primary Care Physician Encounter [facility] [place] [place] Date(s): 10/22/19 - 02/19/20 [facility] Adult [address] [place] [address] [place] Attending Physician: Francis DORAN, Kamila Yang Referring [...] 01/20/20 7:23:00 EDT, Route to Pharmacy Electronically, [facility]/pharmacy #[id number], 162.56, cm, 01/20/20 6:47:00 EDT, Height Start Date: 01/20/20 Status: Ordered EpiPen 2-Dayday 0.3 mg injectable kit See Instructions, Intramuscular Once, # 1 kit, 1 Refills, Soft Stop Start Date: 03/15/13 Status: Ordered levothyroxine 150 mcg (0.15 mg) oral tablet 1 tablet = 150 mcg, By Mouth, Daily, # 90 tablet, 1 Refills, Maintenance, 09/15/19 12:16:00 EST, Tablet, [facility]/pharmacy #[id number], 162.56, cm, 01/15/19 6:52:00 EDT, Height Start Date: 09/15/19 Status: Ordered Magnesium Citrate By Mouth, 0 Refills, Maintenance, 08/13/17 9:06:37 Start Date: 08/13/17 Status: Ordered metroNIDAZOLE 0.75% topical gel 1 application, Topically, 2 times a day, # 45 Gm, 5 Refills, Maintenance, 01/20/20 7:37:00 EDT, Gel, [facility]/pharmacy #[id number], 1 application Topically 2 times a [...] Refills, Maintenance, 01/28/20 8:24:00 EDT, REC Powder, [facility]/pharmacy #[id number], test date 06/30/20, 240 mL By [...]
== END 2023-08-19 19:42 | disposition home or self-care (01) ==
PROVIDERS: Emergency Provider Emergency Medicine; PCP Nurse Practitioner Family
DX: S93.401A Sprain of unspecified ligament of right ankle, initial encounter (principal); S96.911A Strain of unspecified muscle and tendon at ankle and foot level, right foot, initial encounter; X50.1XXA Overexertion from prolonged static or awkward postures, initial encounter; Y93.89 Activity, other specified; Y92.009 Unspecified place in unspecified non-institutional (private) residence as the place of occurrence of the external cause; Y99.9 Unspecified external cause status
CPT/HCPCS: 73610; 73630; 99282; 99283

== ENCOUNTER 2024-04-15 18:41 | Emergency (ER) | payer MEDICARE, SELFPAY ==
[2024-04-15 19:09] VITALS: BP 140/78; PULSE 80; RESP 18; TEMP 36.6; O2SAT 96; BMI 26.7
--- NOTE | 2024-04-15 19:09 | ED.NAVMDI ---
HPI - Nausea/Vomiting/Diarrhea General Chief complaint: Skin/Abscess/Foreign Body Stated complaint: food poisoning + spider bite Time Seen by Provider: 04/15/24 21:34 Source: patient and family Mode of arrival: ambulatory Limitations: no limitations History of Present Illness ED Provider: Dr. Rinaldi HPI Narrative: patient comes in because she wants her blister on her right leg to be checked. She blames the blister on a spider bite. In addition patient concerned that she had diarrhea a few weeks ago and thinks she was exposed to lysteria. Related Data Allergies Allergy/AdvReac Type Severity Reaction Status Date / Time bee pollen [bee stings] Allergy Swelling Verified 04/15/24 19:10 lactose Allergy Unknown Verified 04/15/24 19:10 Review of Systems Review of Systems: Yes all other systems are reviewed and are negative Neurologic: Denies Sensory deficit (Neuro) Physical Exam Vital Signs: Vital Signs: Last Vital Signs Temp 97.9 F 04/15/24 19:09 Pulse 80 04/15/24 19:09 Resp 18 04/15/24 19:09 BP 140/78 H 04/15/24 19:09 Pulse Ox 96 04/15/24 19:09 O2 Del Method Room Air 04/15/24 19:09 BMI result Body Mass Index 26.7 Const: General: healthy appearing Nutritional Appearance: average body habitus Orientation/consciousness: oriented to person and patient oriented x3 Limitations: no limitations HEENT: Head: Yes normal to inspection Ears: external ears normal General nose exam: Normal external nose present Mouth: Normal oral and palatal mucosa present and oropharynx normal Throat: Yes posterior oropharynx normal Eyes: General: appearance normal, both eyes and all related structures Neck: Other: supple Neck: Yes normal visual inspection Chest: Chest palpation & inspection: normal inspection of the chest Resp: Auscultation: clear to auscultation bilaterally Cardio: Jugular venous distension: no JVD Rate: regular rate Rhythm: regular rhythm Heart sounds: S1 normal heart sound present and S2 normal heart sound present GI: Inspection: Yes normal to inspection Palpation (GI): Soft to palpation, nontender and No hepatosplenomegaly present Auscultation: normal bowel sounds : General: Yes no CVA tenderness Back/Spine/Pelvis: Back: no CVA tenderness Skin: Other: right thigh with well healing blister, no pus no erythema Neuro: General: oriented to person and patient oriented x3 Cranial nerves: Yes CN's II-XII intact bilaterally Motor exam (neuro): 5/5 motor strength present throughout Sensory Exam: No Sensory deficit (Neuro) Extrem: General: Yes normal to inspection Psych: Appearance: grossly normal Course Course Course Narrative: This is a Rapid Medical Exam performed in triage by Sujey Costello PA-C. Full HPI, ROS and PE to be performed by primary ED provider. 68 year-old F w/ PMHx presenting to the ED c/o food poisoning 03/27 with nausea, vomiting, diarrhea & then was bit by spider noted to have blister to R thigh, was given topical cream by PCP. Admits to feeling lightheaded today & wants spider bite wound checked. 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 Plan: EKG, Labs, UA, orthostatics Reevaluation(s) Reevaluation #1: Patient with good local wound care, encouraged to continue with her treatment Time: 21:49 Medical Decision Making Differential Diagnosis Differential Diagnoses: The differential diagnosis associated with the presentation includes (abscess, cellulitis, diarrhea, palpitations) Admission/Observation Consideration of admission/observation: Escalation of care including admission/observation considered (upon arrival patient was considered for admission) Lab Data 04/15/24 19:24 04/15/24 19:24 Labs: Lab Results 04/15/24 Range/Units 19:24 WBC 9.9 (4.8-10.8) X10*3/uL RBC 4.72 (4.20-5.50) X10*6/uL Hgb 14.5 (12.0-16.0) g/dl Hct 42.7 (37.0-47.0) % MCV 90.5 (80.0-98.0) fL MCH 30.7 (27.0-33.0) pg MCHC 34.0 (31.0-35.0) g/dl RDW 13.0 (11.0-16.0) % Plt Count 206 (160-400) X10*3/uL MPV 11.6 (9.4-12.3) fL Immature Gran % (Auto) 0.3 (0.0-0.4) % Neut % (Auto) 64.4 (45-73) % Lymph % (Auto) 23.8 (20-40) % [place] % (Auto) 9.8 (2-11) % Eos % (Auto) 1.2 (0-4) % Baso % (Auto) 0.5 (0-2) % Lymph # (Auto) 2.4 (1.2-4.9) X10*3/uL [place] # (Auto) 1.0 (0.1-1.2) X10*3/uL Eos # (Auto) 0.1 (0.0-0.4) X10*3/uL Baso # (Auto) 0.1 (0.0-0.2) X10*3/uL Abs Immat Gran (auto) 0.03 (0.00-0.03) X10*3/uL Absolute Neuts (auto) 6.4 (2.0-8.3) x10*3/uL Absolute Nucleated RBC 0.000 (0.0-0.012) X10*3/uL Nucleated RBC % (auto) 0.0 (0.0-0.2) /100WBC Sodium 144 (135-145) mmol/L Potassium 3.6 (3.3-5.1) mmol/L Chloride 108 (96-108) mmol/L Carbon Dioxide 26 (22-29) mmol/L Anion Gap 14 (12-20) BUN 16 (9-16) mg/dL Creatinine 0.80 (0.5-1.4) mg/dL Estim Creat Clear Calc 67.3 Estimated GFR > 60 Random Glucose 150 H (60-115) mg/dL Calcium 8.9 (8.4-10.2) mg/dL Magnesium 2.1 (1.6-2.6) mg/dL Total Bilirubin 0.6 (0.0-1.0) mg/dL Direct Bilirubin 0.2 (0.0-0.5) mg/dL AST 24 (5-31) U/L ALT 32 H (0-31) U/L Alkaline Phosphatase 100 (39-117) U/L Troponin I High Sens < 2.7 (<3.5-17.0) ng/L Total Protein 7.0 (6.5-8.0) g/dL Albumin 4.1 (3.5-5.0) g/dL Independent Interpretation I performed an independent interpretation of an: EKG (sinus 70, no st or twave changes) Independent Historian Clinical information obtained from an independent historian. History obtained from or confirmed by: Spouse Prescription Management I considered prescription management with: Antibiotic (no evidence of systemic infection will continue with local wound care) Discharge Plan Discharge Clinical Impression: Blister Patient Disposition: Home, Self-Care Additional Instructions: local wound care Referrals: Kamila Blanco TAX EXAMINING TECHNICIAN [Primary Care Provider] - 1 week Print Language: Haitian
--- NOTE | 2024-04-15 19:13 | ECG_ITS ---
Test Reason : light headed Blood Pressure : / mmHG Vent. Rate : 071 BPM Atrial Rate : 071 BPM P-R Int : 156 ms QRS Dur : 076 ms QT Int : 398 ms P-R-T Axes : 053 016 076 degrees QTc Int : 432 ms Normal sinus rhythm Normal ECG No previous ECGs available Referred By: Sujey Costello Electronically Signed By:CORRINA RAMOS MD
[2024-04-15 19:27] LABS: MANUAL DIFF FLAG NO
[2024-04-15 19:34] LABS: Basophils Absolute Auto 0.1 X10*3/uL (0.0-0.2); Basophils Percent Auto 0.5 % (0-2); Eosinophils Absolute Auto 0.1 X10*3/uL (0.0-0.4); Eosinophils Percent Auto 1.2 % (0-4); Hematocrit 42.7 % (37.0-47.0); Hemoglobin 14.5 g/dl (12.0-16.0); Imm Gran Abs Auto 0.03 X10*3/uL (0.00-0.03); Imm Gran Pct Auto 0.3 % (0.0-0.4); Lymphocytes Absolute Auto 2.4 X10*3/uL (1.2-4.9); Lymphocytes Percent Auto 23.8 % (20-40); Mean Corpuscular Hemoglobin 30.7 pg (27.0-33.0); Mean Corpuscular Volume 90.5 fL (80.0-98.0); Mean Platelet Volume 11.6 fL (9.4-12.3); Monocytes Percent Auto 9.8 % (2-11); Neutrophils Absolute Auto 6.4 x10*3/uL (2.0-8.3); Neutrophils Percent Auto 64.4 % (45-73); Platelet Count 206 X10*3/uL (160-400); Red Blood Count 4.72 X10*6/uL (4.20-5.50); White Blood Count 9.9 X10*3/uL (4.8-10.8)
[2024-04-15 19:45] LABS: Alanine Aminotransferase 32 U/L (0-31); Albumin Level 4.1 g/dL (3.5-5.0); Alkaline Phosphatase 100 U/L (39-117); Anion Gap 14 (12-20); Aspartate Amino Transferase 24 U/L (5-31); Bilirubin Direct 0.2 mg/dL (0.0-0.5); Bilirubin Total 0.6 mg/dL (0.0-1.0); Blood Urea Nitrogen 16 mg/dL (9-16); Calcium 8.9 mg/dL (8.4-10.2); Carbon Dioxide 26 mmol/L (22-29); Chloride 108 mmol/L (96-108); Creatinine Clr Calc Pharmacy 67.3; Estimated Glomerular Filt Rate > 60; Glucose Random 150 mg/dL (60-115); Magnesium 2.1 mg/dL (1.6-2.6); Potassium 3.6 mmol/L (3.3-5.1); Sodium 144 mmol/L (135-145)
[2024-04-15 19:53] LABS: Troponin-I High Sensitivity < 2.7 ng/L (<3.5-17.0)
--- OUTSIDE RECORDS SUMMARY | 2024-04-15 21:56 | XMS_ITS | Continuity of Care Document ---
Author Organization [facility] Tee lt Address [address] [place] [address]- Care Team Providers Care Waist Presser Name Role Phone Francis DORAN, Kamila Yang Primary Care Physician Encounter [facility] [place] Date(s): 09/12/23 - 10/12/23 [facility] Adult [address] [place] [address]- Allergies, Adverse Reactions, Alerts Substance Reaction Severity Status Bee Stings eye itching, swellin g local swelling Active egg-containing compound mucus buildup Act sandeep Other Food Allergy dairy products - mucus buildup Active Immunizations Given and Recorded Vaccine Date Status Refusal Reason tetanus/diphtheria/pertussis, acel(Tdap) 01/06/23 Recorded [id number] bivalent booster vax 07/18/22 Recorded influenza virus [...] toxoids (Td) 11/05/06 Given 1Location History: [facility] employer 2Result Comment: [08/30/2014] Received at work Medications amLODIPine 5 mg oral tablet 1 tablet, By Mouth, Daily, # 90 tablet, 2 Refills, Maintenance, 02/11/23 9:51:00 EDT, [facility], 162.2, cm, 02/08/23 7:19:00 EDT, Height Start Date: 02/11/23 Status: Ordered AutoCPAP 9-12 with heated humidification AutoCPAP 9-12 with heated humidification, See Instructions, # 1 each, Refills 0, Tot. Refills 0, Maintenance, use overnight and naps from [facility], 01/16/22 12:22:00 EDT, Compound Start Date: 01/16/22 Status: Ordered EpiPen 2-Dayday 0.3 mg injectable kit See Instructions, Intramuscular Once, # 1 kit, 1 Refills, Soft Stop Start Date: 03/15/13 Status: Ordered ipratropium nasal 21 mcg/inh spray See Instructions, INHALE 1 SPRAY INTO EACH NOSTRIL TWICE A DAY NEEDED FOR NASAL CONGESTION, # 90Unknown, 5 Refills, Maintenance, 11/08/22 11:15:00 EST, [facility], 90, INHALE 1 SPRAY INTO EACH NOSTRIL TWICE A DAY NEEDED FOR NASAL CONGESTIO... Start Date: 11/08/22 Status: Ordered lantanoprost eye drops lantanoprost eye drops, Refills 0, Maintenance, 08/17/21 9:09:00 EST, Supply Start Date: 08/17/21 Status: Ordered levothyroxine 150 mcg (0.15 mg) oral tablet 1 tablet, By Mouth, Daily, # 90 tablet, 1 Refills, Maintenance, 09/12/23 21:33:00 EST, [facility], 162.2, cm, 02/08/23 7:19:00 EDT, Height Start Date: 09/12/23 Status: Ordered Magnesium Citrate By Mouth, 0 [...] Associate Professional Member Role: PCP Address: Address: [address] [place] [address]- Care Team Related Persons Name: RENATA CARY Address: home [address] [place] [address] Name: FREDY CARY Address: home [address] [place] [address]
--- OUTSIDE RECORDS SUMMARY | 2024-04-15 21:56 | XMS_ITS | Continuity of Care Document ---
Author Organization [facility] Shiva Tee lt Address [address] [place] [address]- Care Team Providers Care Manager Long Term Care Name Role Phone Francis DORAN, Kamila Yang Primary Care Physician Encounter [facility] Date(s): 11/17/23 - 12/17/23 [facility] Adult [address] [place] [address]- Allergies, Adverse Reactions, Alerts Substance Reaction Severity Status Bee Stings eye itching, swellin g local swelling Active egg-containing compound mucus buildup Act sandeep Other Food Allergy dairy products - mucus buildup Active Immunizations Given and Recorded Vaccine Date Status Refusal Reason tetanus/diphtheria/pertussis, acel(Tdap) 01/06/23 Recorded [id number] bivalent booster vax 07/18/22 Recorded influenza virus [...] tetanus-diphtheria toxoids (Td) 11/05/06 Given 1Location History: [facility] [place] employer 2Result Comment: [08/30/2014] Received at work Medications amLODIPine 5 mg oral tablet 1 tablet, By Mouth, Daily, # 90 tablet, 1 Refills, Maintenance, 11/17/23 17:22:00 EDT, [id number], 162.2, cm, 02/08/23 7:19:00 EDT, Height Start Date: 11/17/23 Status: Ordered AutoCPAP 9-12 with heated humidification AutoCPAP 9-12 with heated humidification, See Instructions, # 1 each, Refills 0, Tot. Refills 0, Maintenance, use overnight and naps from [facility], 01/16/22 12:22:00 EDT, Compound Start Date: 01/16/22 Status: Ordered EpiPen 2-Dayday 0.3 mg injectable kit See Instructions, Intramuscular Once, # 1 kit, 1 Refills, Soft Stop Start Date: 03/15/13 Status: Ordered ipratropium nasal 21 mcg/inh spray See Instructions, INHALE 1 SPRAY INTO EACH NOSTRIL TWICE A DAY NEEDED FOR NASAL CONGESTION, # 90Unknown, 5 Refills, Maintenance, 11/08/22 11:15:00 EST, [id number], 90, INHALE 1 SPRAY INTO EACH NOSTRIL TWICE A DAY NEEDED FOR NASAL CONGESTIO... Start Date: 11/08/22 Status: Ordered lantanoprost eye drops lantanoprost eye drops, Refills 0, Maintenance, 08/17/21 9:09:00 EST, Supply Start Date: 08/17/21 Status: Ordered levothyroxine 150 mcg (0.15 mg) oral tablet 1 tablet, By Mouth, Daily, # 90 tablet, 1 Refills, Maintenance, 09/12/23 21:33:00 EST, [id number], 162.2, cm, 02/08/23 7:19:00 EDT, Height Start [...] Associate Professional Member Role: PCP Address: Address: [address] [place] [id number]- Care Team Related Persons Name: RENATA CARY Address: home [address] [address] Name: FREDY CARY Address: home [address] [place] [address]
--- OUTSIDE RECORDS SUMMARY | 2024-04-15 21:56 | XMS_ITS | Continuity of Care Document ---
Author Organization [facility] Shiva Tee lt Address [address] [place] [id number]- Care Team Providers Care Assistant Teacher Name Role Phone Francis DORAN, Kamila Yang Primary Care Physician Encounter [facility] Date(s): 09/13/23 - 10/13/23 [facility] Adult [address] [place] [address]- Allergies, Adverse Reactions, Alerts Substance Reaction Severity Status Bee Stings eye itching, swellin g local swelling Active egg-containing compound mucus buildup Act sandeep Other Food Allergy dairy products - mucus buildup Active Immunizations Given and Recorded Vaccine Date Status Refusal Reason tetanus/diphtheria/pertussis, acel(Tdap) 01/06/23 Recorded [id number] bivalent booster vax 07/18/22 Recorded influenza virus [...] tetanus-diphtheria toxoids (Td) 11/05/06 Given [place] [facility] [place] 2Result Comment: [08/30/2014] Received at work Medications amLODIPine 5 mg oral tablet 1 tablet, By Mouth, Daily, # 90 tablet, 2 Refills, Maintenance, 02/11/23 9:51:00 EDT, [id number], 162.2, cm, 02/08/23 7:19:00 EDT, Height Start Date: 02/11/23 Status: Ordered AutoCPAP 9-12 with heated humidification AutoCPAP 9-12 with heated humidification, See Instructions, # 1 each, Refills 0, Tot. Refills 0, Maintenance, use overnight and naps from [facility], 01/16/22 12:22:00 EDT, Compound Start Date: 01/16/22 Status: Ordered EpiPen 2-Dayday 0.3 mg injectable kit See Instructions, Intramuscular Once, # 1 kit, 1 Refills, Soft Stop Start Date: 03/15/13 Status: Ordered ipratropium nasal 21 mcg/inh spray See Instructions, INHALE 1 SPRAY INTO EACH NOSTRIL TWICE A DAY NEEDED FOR NASAL CONGESTION, # 90Unknown, 5 Refills, Maintenance, 11/08/22 11:15:00 EST, [id number], 90, INHALE 1 SPRAY INTO EACH NOSTRIL TWICE A DAY NEEDED FOR NASAL CONGESTIO... Start Date: 11/08/22 Status: Ordered lantanoprost eye drops lantanoprost eye drops, Refills 0, Maintenance, 08/17/21 9:09:00 EST, Supply Start Date: 08/17/21 Status: Ordered levothyroxine 150 mcg (0.15 mg) oral tablet 1 tablet, By Mouth, Daily, # 90 tablet, 1 Refills, Maintenance, 09/12/23 21:33:00 EST, [id number], 162.2, cm, 02/08/23 7:19:00 EDT, Height Start [...] Associate Professional Member Role: PCP Address: Address: [address] [place] [id number]- Care Team Related Persons Name: RENATA CARY Address: home [address] [place] [address] Name: FREDY CARY Address: home [address] [place] [address]
--- OUTSIDE RECORDS SUMMARY | 2024-04-15 21:57 | XMS_ITS | Continuity of Care Document ---
Author Organization [facility] Shiva Tee lt Address [address] [place] [phone]- Care Team Providers Care Advertising Production Manager Name Role Phone Francis DORAN, Kamila Yang Primary Care Physician [phone] Encounter [facility] Date(s): 09/13/23 - 10/13/23 [facility] Adult [address] [place] [address]- Allergies, Adverse Reactions, Alerts Substance Reaction Severity Status Bee Stings eye itching, swellin g local swelling Active egg-containing compound mucus buildup Act sandeep Other Food Allergy dairy products - mucus buildup Active Immunizations Given and Recorded Vaccine Date Status Refusal Reason tetanus/diphtheria/pertussis, acel(Tdap) 01/06/23 Recorded [id number] bivalent booster vax 07/18/22 Recorded influenza virus [...] tetanus-diphtheria toxoids (Td) 11/05/06 Given 1Location History: [facility] [place] 2Result Comment: [08/30/2014] Received at work Medications amLODIPine 5 mg oral tablet 1 tablet, By Mouth, Daily, # 90 tablet, 2 Refills, Maintenance, 02/11/23 9:51:00 EDT, [id number], 162.2, cm, 02/08/23 7:19:00 EDT, Height Start Date: 02/11/23 Status: Ordered AutoCPAP 9-12 with heated humidification AutoCPAP 9-12 with heated humidification, See Instructions, # 1 each, Refills 0, Tot. Refills 0, Maintenance, use overnight and naps from [facility], 01/16/22 12:22:00 EDT, Compound Start Date: 01/16/22 Status: Ordered EpiPen 2-Dayday 0.3 mg injectable kit See Instructions, Intramuscular Once, # 1 kit, 1 Refills, Soft Stop Start Date: 03/15/13 Status: Ordered ipratropium nasal 21 mcg/inh spray See Instructions, INHALE 1 SPRAY INTO EACH NOSTRIL TWICE A DAY NEEDED FOR NASAL CONGESTION, # 90Unknown, 5 Refills, Maintenance, 11/08/22 11:15:00 EST, [id number], 90, INHALE 1 SPRAY INTO EACH NOSTRIL TWICE A DAY NEEDED FOR NASAL CONGESTIO... Start Date: 11/08/22 Status: Ordered lantanoprost eye drops lantanoprost eye drops, Refills 0, Maintenance, 08/17/21 9:09:00 EST, Supply Start Date: 08/17/21 Status: Ordered levothyroxine 150 mcg (0.15 mg) oral tablet 1 tablet, By Mouth, Daily, # 90 tablet, 1 Refills, Maintenance, 09/12/23 21:33:00 EST, [facility], 162.2, cm, 02/08/23 7:19:00 EDT, Height Start [...] Associate Professional Member Role: PCP Address: Address: [address] [place] [address]- Care Team Related Persons Name: RENATA CARY Address: home [address] [place] [address] Name: FREDY CARY Address: home [address] [place] [address]
--- OUTSIDE RECORDS SUMMARY | 2024-04-15 21:57 | XMS_ITS | Continuity of Care Document ---
Author Organization [facility] Shiva Tee lt Address [address] [place] [address]- Care Team Providers Care Payroll Analyst Name Role Phone Francis DORAN, Kamila Yang Primary Care Physician Encounter [facility] Date(s): 03/12/24 - 04/11/24 [facility] Adult [address] [place] [address]- Allergies, Adverse Reactions, Alerts Substance Reaction Severity Status Bee Stings eye itching, swellin g local swelling Active egg-containing compound mucus buildup Act sandeep Other Food Allergy dairy products - mucus buildup Active Immunizations Given and Recorded Vaccine Date Status Refusal Reason tetanus/diphtheria/pertussis, acel(Tdap) 01/06/23 Recorded [id number] bivalent booster vax 07/18/22 Recorded influenza virus vaccine, inactivated 06/26/22 Give n influenza virus vaccine, inactivated 07/21/21 Sammy rded influenza virus vaccine, inactivated 06/06/20 Sammy rded influenza virus vaccine, inactivated 06/29/18 Sammy rded influenza virus vaccine, inactivated 09/26/17 Sammy rded influenza virus vaccine, inactivated 1 07/10/17 Re corded influenza virus vaccine, inactivated 06/06/16 Sammy rded influenza virus vaccine, inactivated 2 07/10/14 Gi lios pneumococcal 20-valent conjugate vaccine 01/22/22 Recorded SARS-CoV-2 (COVID-19) mRNA-1273 vaccine 01/15/22 R ecorded SARS-CoV-2 (COVID-19) mRNA-1273 vaccine 07/21/21 R ecorded SARS-CoV-2 (COVID-19) mRNA-1273 vaccine 12/05/20 R ecorded SARS-CoV-2 (COVID-19) mRNA-1273 vaccine 11/07/20 R ecorded zoster vaccine, inactivated 04/10/21 Recorded zoster vaccine, inactivated 01/23/21 Recorded Diphtheria/Tet/Pertussis, Acel (oldterm) 01/13/18 Given Zoster Vaccine Live 10/08/16 Recorded tetanus-diphtheria toxoids (Td) 11/05/06 Given 1Location History: [facility] [place] employer 2Result Comment: [08/30/2014] Received at work Medications amLODIPine 5 mg oral tablet 1 tablet, By Mouth, Daily, # 90 tablet, 1 Refills, Maintenance, 11/17/23 17:22:00 EDT, [id number], 162.2, cm, 02/08/23 7:19:00 EDT, Height Start Date: 11/17/23 Status: Ordered AutoCPAP 9-12 with heated humidification AutoCPAP 9-12 with heated humidification, See Instructions, # 1 each, Refills 0, Tot. Refills 0, Maintenance, use overnight and naps from [facility], 01/16/22 12:22:00 EDT, Compound Start Date: 01/16/22 Status: Ordered EpiPen 2-Dayday 0.3 mg injectable kit See Instructions, Intramuscular Once, # 1 kit, 1 Refills, Soft Stop Start Date: 03/15/13 Status: Ordered ipratropium nasal 21 mcg/inh spray See Instructions, INHALE 1 SPRAY INTO EACH NOSTRIL TWICE A DAY NEEDED FOR NASAL CONGESTION, # 90Unknown, 5 Refills, Maintenance, 11/08/22 11:15:00 EST, [id number], 90, INHALE 1 SPRAY INTO EACH NOSTRIL TWICE A DAY NEEDED FOR NASAL CONGESTIO... Start Date: 11/08/22 Status: Ordered lantanoprost eye drops lantanoprost eye drops, Refills 0, Maintenance, 08/17/21 9:09:00 EST, Supply Start Date: 08/17/21 Status: Ordered levothyroxine 150 mcg (0.15 mg) oral tablet 1 tablet, By Mouth, Daily, # 90 tablet, 1 Refills, Maintenance, 03/13/24 10:42:00 EDT, [id number], 162.2, cm, 02/08/23 7:19:00 EDT, Height Start Date: 03/13/24 Status: Ordered Magnesium Citrate By Mouth, 0 Refills, Maintenance, 08/13/17 9:06:37 Start Date: 08/13/17 Status: Ordered metroNIDAZOLE 0.75% topical gel 1 application, Topically, 2 times a day, # 45 Gm, 5 Refills, Maintenance, 01/20/20 7:37:00 EDT, Gel, [facility]/pharmacy #[id number], 1 application Topically 2 times a day,x30 days, 162.56, cm, 01/20/20 6:47:00 EDT, Height Start Date: 01/20/20 Stop Date: 07/18/20 Status: Ordered mupirocin 2% topical ointment 1 application, Topically, 3 times a day, for 7 days, # 22 Gm, 0 Refills, Acute 04/16/24 15:59:00 EDT, 04/09/24 15:59:00 EDT, Ointment, [facility]/pharmacy #[id number], Partial fill upon patient request if the prescription is for a schedule II opioid drug., 1 appli... Start Date: 04/09/24 Stop Date: 04/16/24 Status: Ordered Nature's Bounty Red Krill Oil [...] Active Hypertension Confirmed Active Hypothyroid Confirmed Active Insect bite of thigh Confirmed Active MIA (obstructive sleep apnea) Confirmed Active Osteopenia Confirmed Active Acne rosacea Confirmed Active Vesicle of skin Confirmed Active Social History Social History Type Response Smoking Status Never smoker entered on: 02/10/16 Sex Patient Care team information Care Team Personnel Name: Francis DORAN, Kamila Yang Position: [facility] PCO Associate Professional Member Role: PCP Address: Address: [address] [place] [phone]- Care Team Related Persons Name: RENATA CARY Address: [address] [place] [address] Name: FREDY CARY Address: home [address] [place] [address]
[2024-04-15 22:02] VITALS: BP 138/76; PULSE 83; RESP 20; TEMP 36.6; O2SAT 97
[2024-04-15] MEDS: Bacitracin Oint 0.9 GM PACKET 1 APPL TOPICAL (22:03)
[2024-04-15 22:07] VITALS: BP 138/76; PULSE 83; RESP 20; TEMP 36.7; O2SAT 97
== END 2024-04-15 22:07 | disposition home or self-care (01) ==
PROVIDERS: Physician Assistant; Emergency Provider Emergency Medicine; PCP Nurse Practitioner Family
DX: S80.821A Blister (nonthermal), right lower leg, initial encounter (principal); R11.2 Nausea with vomiting, unspecified; R42 Dizziness and giddiness; M79.604 Pain in right leg; X58.XXXA Exposure to other specified factors, initial encounter; Y93.9 Activity, unspecified; Y92.9 Unspecified place or not applicable; Y99.9 Unspecified external cause status; Z79.899 Other long term (current) drug therapy
CPT/HCPCS: 36415; 80048; 80076; 83735; 84484; 85025; 93005; 99283; 99284

== ENCOUNTER → 2024-04-15 19:13 | Outpatient (BNV) | payer MEDICARE, SELFPAY | PROVIDERS: Emergency Provider Emergency Medicine; PCP Nurse Practitioner Family; Visit Provider Internal Medicine Cardiovascular Disease | DX: R42 Dizziness and giddiness (principal) | CPT/HCPCS: 93010 ==